=== PATIENT | female | born 1955 | race Caucasian/White ===

== ENCOUNTER → 2017-07-07 10:16 | Outpatient (CLI) | payer MEDICARE, SELFPAY ==
--- NOTE | 2017-07-07 10:41 | XR_ITS ---
XR foot LT min 3V HISTORY: ITS.REASON: LT FOOT PAIN ORDERING PHYSICIAN: Nakul Partida PATIENT AGE: 61 years COMPARISON: None FINDINGS: No fracture or dislocation. No lytic or blastic change. There is normal mineralization.. The joint spaces are well-preserved. No significant degenerative/arthritic changes. No erosive changes evident. There is a small calcaneal spur which is nonspecific IMPRESSION: Negative, no acute finding
[2017-07-07 12:10] LABS: Alanine Aminotransferase 46 U/L (12-78); Albumin Level 3.9 gm/dL (3.4-5.0); Albumin/Globulin Ratio 1.2 (1.1-1.8); Alkaline Phosphatase 170 U/L (46-116); Anion Gap 15.6 mEq/L (5-15); Aspartate Amino Transferase 38 U/L (15-37); Bilirubin,Total 0.4 mg/dL (0.2-1.0); Blood Urea Nitrogen 14 mg/dL (7-18); Calcium 9.2 mg/dL (8.5-10.1); Carbon Dioxide 27 mmol/L (21.0-32.0); Chloride 106 mmol/L (98-107); Cholesterol 190 mg/dL (140-200); Creatinine,Serum 0.68 mg/dL (0.55-1.02); Estimated Glomerular Filt Rate 87 ml/min (>60); GFR (African American) 106 ML/MIN (>60); Globulin 3.3 gm/dl (1.3-3.2); Glucose 177 mg/dL (74-106); HDL Cholesterol 64 mg/dL (29-89); LDL Cholesterol 100 mg/dL (0-130); Potassium 4.6 mmoL/L (3.5-5.1); Sodium 144 mmol/L (136-145); Total Protein,Serum 7.2 gm/dL (6.4-8.2); Triglycerides 129 mg/dL (30-200); VLDL Cholesterol 26 mg/dL (0-40)
[2017-07-08 10:14] LABS: Creatinine, Urine 75.6 mg/dL (Not Estab.); Microalbumin, Urine 5.4 ug/mL (Not Estab.)
== END ==
PROVIDERS: PCP Family Medicine; Visit Provider Internal Medicine Endocrinology, Diabetes & Metabolism
DX: E11.65 Type 2 diabetes mellitus with hyperglycemia (principal); Z79.4 Long term (current) use of insulin; M79.672 Pain in left foot
CPT/HCPCS: 36415; 73630; 80053; 80061; 82043

== ENCOUNTER → 2017-09-14 11:13 | Outpatient (CLI) | payer MEDICARE, SELFPAY ==
[2017-09-14 11:26] LABS: Microscopic, Urine URINE MICROSCOPIC (MICROSCOPIC)
[2017-09-14 11:53] LABS: Appearance,Urine CLEAR (Clear); Bilirubin,Urine Negative (Negative); Blood, Urine Negative (Negative); Color,Urine YELLOW (Yellow); Glucose,Urine (UA) Negative (Negative); Ketones,Urine Negative (Negative); Leukocyte Esterase,Urine TRACE (Negative); Nitrate,Urine Negative (Negative); Protein,Urine Negative (Negative); Urobilinogen,Urine 0.2 EU/dl (0.2)
[2017-09-14 12:43] LABS: Bacteria,Urine Trace /lpf; WBC,Urine Occasional #/hpf (0-3)
== END ==
PROVIDERS: Visit Provider Physician Assistant
DX: R30.0 Dysuria (principal)
CPT/HCPCS: 81001; 87086

== ENCOUNTER → 2018-01-15 08:39 | Outpatient (CLI) | payer MEDICARE, SELFPAY ==
[2018-01-15 09:35] LABS: Alanine Aminotransferase 104 U/L (12-78); Albumin/Globulin Ratio 1.1 (1.1-1.8); Alkaline Phosphatase 183 U/L (46-116); Anion Gap 12.9 mEq/L (5-15); Aspartate Amino Transferase 77 U/L (15-37); Bilirubin,Total 0.6 mg/dL (0.2-1.0); Blood Urea Nitrogen 14 mg/dL (7-18); Carbon Dioxide 27 mmol/L (21.0-32.0); Chloride 104 mmol/L (98-107); Chol/HDL Ratio 4.7 (1-3.5); Cholesterol 253 mg/dL (140-200); Creatinine,Serum 0.77 mg/dL (0.55-1.02); Estimated Glomerular Filt Rate 75 ml/min (>60); GFR (African American) 91 ML/MIN (>60); Globulin 3.7 gm/dl (1.3-3.2); Glucose 239 mg/dL (74-106); HDL Cholesterol 54 mg/dL (29-89); LDL Cholesterol 163 mg/dL (0-130); Potassium 3.9 mmoL/L (3.5-5.1); Sodium 140 mmol/L (136-145); Total Protein,Serum 7.7 gm/dL (6.4-8.2); Triglycerides 179 mg/dL (30-200); VLDL Cholesterol 36 mg/dL (0-40)
[2018-01-15 09:45] LABS: Calcium 9.2 mg/dL (8.5-10.1)
[2018-01-16 09:21] LABS: Creatinine, Urine 80.8 mg/dL (Not Estab.); Microalbumin, Urine 6.1 ug/mL (Not Estab.)
== END ==
PROVIDERS: Visit Provider Nurse Practitioner
DX: E11.65 Type 2 diabetes mellitus with hyperglycemia (principal); E78.5 Hyperlipidemia, unspecified
CPT/HCPCS: 36415; 80053; 80061; 82043; 82570

== ENCOUNTER → 2018-02-12 07:21 | Outpatient (CLI) | payer MEDICARE, SELFPAY ==
[2018-02-12 07:50] LABS: Basophils % 0.4 % (0.1-2.0); Eosinophils # 0.2 K/mm3 (0.0-0.4); Eosinophils % 2.2 % (0.1-12.0); Hematocrit 47.5 % (37.0-47.0); Hemoglobin 15.5 g/dL (12.2-16.2); Lymphocytes # 1.9 K/mm3 (0.7-4.5); Lymphocytes % 24.9 K/mm3 (10-50); Mean Corpuscular HGB Conc 32.6 g/dL (31.8-35.4); Mean Corpuscular Hemoglobin 29.2 pg (27.0-31.2); Mean Corpuscular Volume 89.4 fl (81-99); Monocytes # 0.4 K/mm3 (0.1-1.0); Monocytes % 5.6 % (1.7-9.3); Neutrophils # 5.2 K/mm3 (1.8-7.8); Neutrophils % 66.9 % (37.0-80.0); Platelet Count 161 K/mm3 (142-424); Red Blood Count 5.31 M/mm3 (4.20-5.40); Red Cell Distribution Width 13.6 % (11.5-17.5); White Blood Count 7.7 K/mm3 (4.8-10.8)
[2018-02-12 08:24] LABS: Hemoglobin A1C 8.6 % (0.0-7.0)
[2018-02-12 09:22] LABS: Alanine Aminotransferase 96 U/L (12-78); Albumin Level 3.9 gm/dL (3.4-5.0); Albumin/Globulin Ratio 1.1 (1.1-1.8); Alkaline Phosphatase 169 U/L (46-116); Anion Gap 16.9 mEq/L (5-15); Aspartate Amino Transferase 73 U/L (15-37); Bilirubin,Total 0.6 mg/dL (0.2-1.0); Blood Urea Nitrogen 13 mg/dL (7-18); Calcium 9.1 mg/dL (8.5-10.1); Carbon Dioxide 26 mmol/L (21.0-32.0); Chloride 103 mmol/L (98-107); Chol/HDL Ratio 4.1 (1-3.5); Cholesterol 236 mg/dL (140-200); Creatinine,Serum 0.74 mg/dL (0.55-1.02); Estimated Glomerular Filt Rate 79 ml/min (>60); Ferritin 376 ng/mL (8-388); GFR (African American) 96 ML/MIN (>60); Globulin 3.4 gm/dl (1.3-3.2); Glucose 227 mg/dL (74-106); HDL Cholesterol 57 mg/dL (29-89); Iron 79 ug/dl (28-170); LDL Cholesterol 150 mg/dL (0-130); Phosphorous 3.9 mg/dL (2.4-4.9); Potassium 3.9 mmoL/L (3.5-5.1); Sodium 142 mmol/L (136-145); Thyroid Stimulating Hormone 1.67 uIU/ml (0.358-3.740); Total Protein,Serum 7.3 gm/dL (6.4-8.2); Triglycerides 147 mg/dL (30-200); VLDL Cholesterol 29 mg/dL (0-40)
[2018-02-13 18:41] LABS: Folate >20.0 ng/mL (>3.0); Parathyroid Hormone Intact 34 pg/mL (15-65); Prealbumin 18 mg/dL (10-36); Vitamin D 25 Hydroxy 38.6 ng/mL (30.0-100.0)
[2018-02-17 08:27] LABS: Vitamin E Alpha Tocopherol 13.8 mg/L (9.0-29.0)
[2018-02-17 10:57] LABS: Vitamin B1 143.1 nmol/L (66.5-200.0)
[2018-02-17 10:58] LABS: Vitamin A 29.7 ug/dL (36.4-108.0)
[2018-02-17 10:59] LABS: Methylmalonic Acid 106 nmol/L (0-378)
== END ==
PROVIDERS: Visit Provider Physician Assistant
DX: K21.9 Gastro-esophageal reflux disease without esophagitis (principal); E11.9 Type 2 diabetes mellitus without complications; E66.01 Morbid (severe) obesity due to excess calories; E78.5 Hyperlipidemia, unspecified; E55.9 Vitamin D deficiency, unspecified
CPT/HCPCS: 36415; 80053; 80061; 82131; 82652; 82728; 82746; 83036; 83540; 83735; 83970; 84100; 84134; 84425; 84443; 84446; 84590; 85025

== ENCOUNTER → 2018-02-22 09:39 | Outpatient (CLI) | payer MEDICARE, SELFPAY ==
--- NOTE | 2018-02-22 09:46 | MM_ITS ---
MM Dig screening mamm BI w/CAD ORDERING PHYSICIAN : Shira Pierre MD PATIENT AGE: 62 years GENDER: Female COMPARISON: December 2016. INDICATION: ITS.REASON: SCREENING. No hormones. No new complaints noncontributory family history TECHNIQUE: Standard CC and MLO images were obtained. R2 CAD reviewed. FINDINGS: Low-density breast with diffuse fatty replacement bilaterally. No mass lesion. No suspicious findings. No architectural distortion. No suspicious calcifications. CAD computer review highlights no areas of concern either. Stable appearance when compared to previous lateral mammogram December 2016 . IMPRESSION: Negative, stable bilateral mammogram. Low-density breast diffuse fatty replacement. No areas of concern BI-RADS Category: 1 Negative RECOMMENDED FOLLOW-UP: 1YR 1 YEAR FOLLOW-UP (A letter has been sent to the patient regarding results of the study.)
== END ==
PROVIDERS: Family Provider Family Medicine; PCP Family Medicine; Visit Provider Family Medicine
DX: Z12.31 Encounter for screening mammogram for malignant neoplasm of breast (principal); R00.2 Palpitations
CPT/HCPCS: 77067; 93005

== ENCOUNTER → 2018-03-15 08:36 | Outpatient (POV) | payer MEDICARE, SELFPAY | PROVIDERS: Family Provider Family Medicine; PCP Family Medicine; Visit Provider Physician Assistant | DX: Z00.00 Encounter for general adult medical examination without abnormal findings (principal) ==

== ENCOUNTER → 2018-05-08 10:03 | Outpatient (CLI) | payer MEDICARE, OTHER, SELFPAY ==
--- NOTE | 2018-05-08 10:35 | XR_ITS ---
XR chest 2V HISTORY: ITS.REASON: former smoker ORDERING PHYSICIAN: Alexandra Green PATIENT AGE: 62 years COMPARISON: PA and lateral chest 03/18/2011 FINDINGS: The cardiomediastinal silhouette and pulmonary vascularity are within normal limits. The lungs are clear without infiltrates, suspicious nodules, or pleural effusions. No acute bony abnormalities. There are mild degenerative changes lower thoracic spine. IMPRESSION: Negative chest, no acute finding
== END ==
PROVIDERS: PCP Family Medicine; Visit Provider Physician Assistant
DX: K21.9 Gastro-esophageal reflux disease without esophagitis (principal); E55.9 Vitamin D deficiency, unspecified; E11.9 Type 2 diabetes mellitus without complications; E78.5 Hyperlipidemia, unspecified; E66.01 Morbid (severe) obesity due to excess calories
CPT/HCPCS: 71046

== ENCOUNTER → 2018-08-12 08:59 | Outpatient (CLI) | payer MEDICARE, MEDICAID, SELFPAY ==
[2018-08-12 10:28] LABS: Basophils % 0.5 % (0.1-2.0); Eosinophils # 0.1 K/mm3 (0.0-0.4); Eosinophils % 1.7 % (0.1-12.0); Lymphocytes # 1.8 K/mm3 (0.7-4.5); Lymphocytes % 27.8 % (10-50); Mean Corpuscular HGB Conc 32.7 g/dL (31.8-35.4); Mean Corpuscular Hemoglobin 30.3 pg (27.0-31.2); Mean Corpuscular Volume 92.6 fl (81-99); Mean Platelet Volume 7.8 fl (7.4-10.4); Monocytes # 0.4 K/mm3 (0.1-1.0); Monocytes % 6.2 % (1.7-9.3); Neutrophils # 4.2 K/mm3 (1.8-7.8); Neutrophils % 63.8 % (37.0-80.0); Platelet Count 171 K/mm3 (142-424); Red Blood Count 5.29 M/mm3 (4.20-5.40); Red Cell Distribution Width 13.6 % (11.5-17.5); White Blood Count 6.6 K/mm3 (4.8-10.8)
[2018-08-12 11:26] LABS: Hemoglobin A1C 6.3 % (0.0-7.0)
[2018-08-12 11:39] LABS: Alanine Aminotransferase 40 U/L (12-78); Albumin/Globulin Ratio 1.2 (1.1-1.8); Alkaline Phosphatase 148 U/L (46-116); Aspartate Amino Transferase 25 U/L (15-37); Bilirubin,Total 0.7 mg/dL (0.2-1.0); Blood Urea Nitrogen 9 mg/dL (7-18); Calcium 9.4 mg/dL (8.5-10.1); Carbon Dioxide 28 mmol/L (21.0-32.0); Chloride 104 mmol/L (98-107); Chol/HDL Ratio 5.1 (1-3.5); Cholesterol 253 mg/dL (140-200); Creatinine,Serum 0.68 mg/dL (0.55-1.02); Estimated Glomerular Filt Rate 87 ml/min (>60); Ferritin 230 ng/mL (8-388); GFR (African American) 105 ML/MIN (>60); Globulin 3.3 gm/dl (1.3-3.2); Glucose 170 mg/dL (74-106); HDL Cholesterol 50 mg/dL (29-89); Iron 132 ug/dl (28-170); LDL Cholesterol 170 mg/dL (0-130); Magnesium 2.1 mg/dL (1.4-2.2); Phosphorous 3.9 mg/dL (2.4-4.9); Sodium 144 mmol/L (136-145); Thyroid Stimulating Hormone 1.73 uIU/ml (0.358-3.740); Total Protein,Serum 7.3 gm/dL (6.4-8.2); Triglycerides 167 mg/dL (30-200); VLDL Cholesterol 33 mg/dL (0-40)
[2018-08-13 12:28] LABS: Folate >20.0 ng/mL (>3.0)
[2018-08-13 12:29] LABS: Prealbumin 19 mg/dL (10-36); Vitamin D 25 Hydroxy 41.8 ng/mL (30.0-100.0)
[2018-08-13 17:12] LABS: Parathyroid Hormone Intact 33 pg/mL (15-65)
[2018-08-14 18:08] LABS: Methylmalonic Acid 86 nmol/L (0-378)
[2018-08-17 09:54] LABS: Vitamin B1 103.8 nmol/L (66.5-200.0)
[2018-08-17 09:56] LABS: Vitamin A 48.8 ug/dL (22.0-69.5); Vitamin E Alpha Tocopherol 14.2 mg/L (9.0-29.0); Vitamin E Gamma Tocopherol 2.9 mg/L (0.5-4.9)
== END ==
PROVIDERS: Visit Provider Physician Assistant
DX: E78.5 Hyperlipidemia, unspecified (principal); E11.9 Type 2 diabetes mellitus without complications; R63.4 Abnormal weight loss; Z98.84 Bariatric surgery status
CPT/HCPCS: 36415; 80053; 80061; 82131; 82652; 82728; 82746; 83036; 83540; 83735; 83970; 84100; 84134; 84425; 84443; 84446; 84590; 85025

== ENCOUNTER → 2018-11-30 09:24 | Outpatient (CLI) | payer MEDICARE, SELFPAY ==
[2018-11-30 11:02] LABS: Basophils % 0.4 % (0.1-2.0); Eosinophils # 0.2 K/mm3 (0.0-0.4); Eosinophils % 2.1 % (0.1-12.0); Hematocrit 42.4 % (37.0-47.0); Hemoglobin 14.6 g/dL (12.2-16.2); Lymphocytes # 2.4 K/mm3 (0.7-4.5); Lymphocytes % 29.8 % (10-50); Mean Corpuscular HGB Conc 34.5 g/dL (31.8-35.4); Mean Corpuscular Hemoglobin 30.5 pg (27.0-31.2); Mean Corpuscular Volume 88.5 fl (81-99); Mean Platelet Volume 8.5 fl (7.4-10.4); Monocytes # 0.4 K/mm3 (0.1-1.0); Monocytes % 4.6 % (1.7-9.3); Platelet Count 163 K/mm3 (142-424); Red Blood Count 4.79 M/mm3 (4.20-5.40); Red Cell Distribution Width 13.2 % (11.5-17.5)
[2018-11-30 12:51] LABS: Alanine Aminotransferase 31 U/L (12-78); Albumin Level 3.7 gm/dL (3.4-5.0); Albumin/Globulin Ratio 1.2 (1.1-1.8); Alkaline Phosphatase 174 U/L (46-116); Anion Gap 15.8 mEq/L (5-15); Aspartate Amino Transferase 26 U/L (15-37); Bilirubin,Total 0.7 mg/dL (0.2-1.0); Blood Urea Nitrogen 9 mg/dL (7-18); Calcium 8.8 mg/dL (8.5-10.1); Carbon Dioxide 27 mmol/L (21.0-32.0); Chloride 105 mmol/L (98-107); Chol/HDL Ratio 4.7 (1-3.5); Cholesterol 235 mg/dL (140-200); Creatinine,Serum 0.52 mg/dL (0.55-1.02); Estimated Glomerular Filt Rate 118 ml/min (>60); Ferritin 282 ng/mL (8-388); GFR (African American) 143 ML/MIN (>60); Globulin 3.1 gm/dl (1.3-3.2); Glucose 128 mg/dL (74-106); HDL Cholesterol 50 mg/dL (29-89); Iron 144 ug/dl (28-170); LDL Cholesterol 146 mg/dL (0-130); Lipase 176 u/L (73-393); Magnesium 1.9 mg/dL (1.4-2.2); Phosphorous 3.7 mg/dL (2.4-4.9); Potassium 3.8 mmoL/L (3.5-5.1); Sodium 144 mmol/L (136-145); Thyroid Stimulating Hormone 1.72 uIU/ml (0.358-3.740); Total Protein,Serum 6.8 gm/dL (6.4-8.2); Triglycerides 194 mg/dL (30-200); VLDL Cholesterol 39 mg/dL (0-40)
[2018-11-30 15:14] LABS: Hemoglobin A1C 6.8 % (0.0-7.0)
[2018-12-03 12:13] LABS: Methylmalonic Acid 79 nmol/L (0-378)
[2018-12-03 20:38] LABS: Folate >20.0 ng/mL (>3.0); Prealbumin 19 mg/dL (10-36)
[2018-12-03 20:39] LABS: Parathyroid Hormone Intact 35 pg/mL (15-65)
[2018-12-03 20:40] LABS: Vitamin D 25 Hydroxy 38.6 ng/mL (30.0-100.0)
[2018-12-03 20:46] LABS: Vitamin A 33.9 ug/dL (22.0-69.5); Vitamin B1 135.8 nmol/L (66.5-200.0)
[2018-12-10 17:44] LABS: Vitamin E Alpha Tocopherol 23.6 mg/L (9.0-29.0); Vitamin E Gamma Tocopherol 1.1 mg/L (0.5-4.9)
== END ==
PROVIDERS: PCP Internal Medicine Adolescent Medicine; Visit Provider Surgery
DX: E11.9 Type 2 diabetes mellitus without complications (principal); E55.9 Vitamin D deficiency, unspecified; E78.5 Hyperlipidemia, unspecified; Z98.84 Bariatric surgery status
CPT/HCPCS: 36415; 80053; 80061; 82131; 82652; 82728; 82746; 83036; 83540; 83690; 83735; 83970; 84100; 84134; 84425; 84443; 84446; 84590; 85025

== ENCOUNTER → 2019-03-03 08:12 | Outpatient (CLI) | payer MEDICARE, SELFPAY ==
[2019-03-03 09:02] LABS: Basophils % 0.4 % (0.1-2.0); Eosinophils # 0.2 K/mm3 (0.0-0.4); Eosinophils % 2.1 % (0.1-12.0); Hematocrit 41.9 % (37.0-47.0); Hemoglobin 14.2 g/dL (12.2-16.2); Lymphocytes % 29.4 % (10-50); Mean Corpuscular HGB Conc 33.8 g/dL (31.8-35.4); Mean Corpuscular Hemoglobin 31.2 pg (27.0-31.2); Mean Corpuscular Volume 92.3 fl (81-99); Mean Platelet Volume 8.1 fl (7.4-10.4); Monocytes # 0.4 K/mm3 (0.1-1.0); Monocytes % 5.4 % (1.7-9.3); Neutrophils # 4.3 K/mm3 (1.8-7.8); Neutrophils % 62.7 % (37.0-80.0); Platelet Count 183 K/mm3 (142-424); Red Blood Count 4.54 M/mm3 (4.20-5.40); Red Cell Distribution Width 13.1 % (11.5-17.5); White Blood Count 6.9 K/mm3 (4.8-10.8)
[2019-03-03 10:08] LABS: Alanine Aminotransferase 25 U/L (12-78); Albumin Level 4.1 gm/dL (3.4-5.0); Albumin/Globulin Ratio 1.3 (1.1-1.8); Alkaline Phosphatase 151 U/L (46-116); Aspartate Amino Transferase 23 U/L (15-37); Bilirubin,Total 0.7 mg/dL (0.2-1.0); Blood Urea Nitrogen 14 mg/dL (7-18); Calcium 9.3 mg/dL (8.5-10.1); Carbon Dioxide 27 mmol/L (21.0-32.0); Chloride 104 mmol/L (98-107); Chol/HDL Ratio 3.9 (1-3.5); Cholesterol 235 mg/dL (140-200); Creatinine,Serum 0.64 mg/dL (0.55-1.02); Estimated Glomerular Filt Rate 93 ml/min (>60); Ferritin 383 ng/mL (8-388); GFR (African American) 113 ML/MIN (>60); Globulin 3.1 gm/dl (1.3-3.2); Glucose 150 mg/dL (74-106); HDL Cholesterol 60 mg/dL (29-89); Iron 135 ug/dl (28-170); LDL Cholesterol 143 mg/dL (0-130); Magnesium 1.8 mg/dL (1.4-2.2); Phosphorous 3.8 mg/dL (2.4-4.9); Sodium 143 mmol/L (136-145); Thyroid Stimulating Hormone 1.52 uIU/ml (0.358-3.740); Total Protein,Serum 7.2 gm/dL (6.4-8.2); Triglycerides 160 mg/dL (30-200); VLDL Cholesterol 32 mg/dL (0-40)
[2019-03-03 10:45] LABS: Hemoglobin A1C 6.4 % (0.0-7.0)
[2019-03-04 11:47] LABS: Folate >20.0 ng/mL (>3.0); Vitamin D 25 Hydroxy 34.8 ng/mL (30.0-100.0)
[2019-03-04 13:09] LABS: Parathyroid Hormone Intact 42 pg/mL (15-65)
[2019-03-04 17:34] LABS: Prealbumin 21 mg/dL (10-36)
[2019-03-07 09:54] LABS: Vitamin A 46.4 ug/dL (22.0-69.5); Vitamin E Alpha Tocopherol 18.2 mg/L (9.0-29.0); Vitamin E Gamma Tocopherol 1.9 mg/L (0.5-4.9)
[2019-03-07 09:55] LABS: Vitamin B1 169.9 nmol/L (66.5-200.0)
[2019-03-07 14:15] LABS: Methylmalonic Acid 129 nmol/L (0-378)
== END ==
PROVIDERS: Visit Provider Physician Assistant
DX: E11.9 Type 2 diabetes mellitus without complications (principal); E78.5 Hyperlipidemia, unspecified; E55.9 Vitamin D deficiency, unspecified; R63.4 Abnormal weight loss; Z98.84 Bariatric surgery status
CPT/HCPCS: 36415; 80053; 80061; 82131; 82652; 82728; 82746; 83036; 83540; 83735; 83970; 84100; 84134; 84425; 84443; 84446; 84590; 85025

== ENCOUNTER → 2019-06-21 09:53 | Outpatient (CLI) | payer MEDICARE, SELFPAY ==
[2019-06-21 12:51] LABS: Lipase 187 u/L (73-393)
== END ==
PROVIDERS: Visit Provider Internal Medicine Adolescent Medicine
DX: R10.84 Generalized abdominal pain (principal)
CPT/HCPCS: 36415; 83690

== ENCOUNTER → 2019-08-02 10:19 | Outpatient (CLI) | payer MEDICARE, SELFPAY ==
[2019-08-02 10:54] LABS: Hemoglobin A1C 7.4 % (0.0-7.0)
== END ==
PROVIDERS: Visit Provider Internal Medicine Adolescent Medicine
DX: E11.40 Type 2 diabetes mellitus with diabetic neuropathy, unspecified (principal)
CPT/HCPCS: 36415; 83036

== ENCOUNTER → 2019-08-16 08:13 | Outpatient (POV) | payer MEDICARE, SELFPAY | PROVIDERS: PCP Internal Medicine Adolescent Medicine; Visit Provider Dermatology | DX: Z00.00 Encounter for general adult medical examination without abnormal findings (principal) ==

== ENCOUNTER → 2019-08-26 08:35 | Outpatient (CLI) | payer MEDICARE, SELFPAY ==
--- NOTE | 2019-08-26 08:41 | MM_ITS ---
PROCEDURE: MM DIG SCREENING MAMM BI W/CAD CLINICAL INDICATION: SCREENING There is no personal or family history of breast cancer COMPARISON: [facility] DIG MAMM-SCREEN BHARGAV W/CAD from 01/08/2017 [facility] MM Dig screening mamm BI w/CAD from 02/22/2018 TECHNIQUE: Standard CC and MLO images and 3D Tomosynthesis was obtained. R2 CAD reviewed. FINDINGS: The breasts are composed almost entirely of fat with very minimal scattered fibroglandular densities noted. Kev images were reviewed. There is no suspicious lesion in either breast and no suspicious microcalcifications. IMPRESSION: Fatty type breast parenchyma with no suspicious lesions seen BI-RAD Category: 1 Negative FOLLOW-UP: 1YR 1 Year Follow-up (A letter has been sent to the patient regarding results of the study.) Dictated by: Dr. Kirill Rod MD 08/30/2019 15:[address] Kirill Rod MD in [place] 08/30/2019 15:47
== END ==
PROVIDERS: PCP Internal Medicine Adolescent Medicine; Visit Provider Internal Medicine Adolescent Medicine
DX: Z12.31 Encounter for screening mammogram for malignant neoplasm of breast (principal)
CPT/HCPCS: 77063; 77067

== ENCOUNTER → 2020-01-03 09:06 | Outpatient (POV) | payer MEDICARE, SELFPAY | PROVIDERS: Visit Provider Dermatology | DX: Z00.00 Encounter for general adult medical examination without abnormal findings (principal) ==

== ENCOUNTER → 2020-03-14 08:03 | Outpatient (CLI) | payer MEDICARE, SELFPAY ==
[2020-03-14 09:06] LABS: Chloride 99 mmol/L (98-107); Sodium 137 mmol/L (136-145)
[2020-03-14 09:07] LABS: Potassium 4.2 mmoL/L (3.5-5.1)
[2020-03-14 09:09] LABS: Alanine Aminotransferase 24 U/L (12-78); Alkaline Phosphatase 143 U/L (38-126); Anion Gap 14.2 mEq/L (5-15); Aspartate Amino Transferase 35 U/L (14-36); Bilirubin,Total 0.9 mg/dl (0.2-1.3); Blood Urea Nitrogen 23 mg/dl (7-17); Carbon Dioxide 28 mmol/L (22.0-30.0); Estimated Glomerular Filt Rate 84 ml/min (>60); GFR (African American) 101 ML/MIN (>60)
[2020-03-14 09:10] LABS: Albumin Level 4.3 g/dl (3.5-5.0); Albumin/Globulin Ratio 1.6 (1.1-1.8); Calcium 9.7 mg/dl (8.4-10.2); Globulin 2.7 g/dL (1.3-3.2); Glucose 320 mg/dl (74-100)
[2020-03-14 09:13] LABS: Hemoglobin A1C 10.6 % (4.0-6.0)
== END ==
PROVIDERS: Visit Provider Internal Medicine Adolescent Medicine
DX: E11.40 Type 2 diabetes mellitus with diabetic neuropathy, unspecified (principal)
CPT/HCPCS: 36415; 80053; 83036

== ENCOUNTER → 2020-06-04 08:55 | Outpatient (CLI) | payer MEDICARE, SELFPAY ==
[2020-06-04 09:34] LABS: Chloride 102 mmol/L (98-107); Potassium 4.1 mmoL/L (3.5-5.1); Sodium 138 mmol/L (136-145)
[2020-06-04 09:37] LABS: Alanine Aminotransferase 23 U/L (12-78); Albumin Level 4.7 g/dl (3.5-5.0); Albumin/Globulin Ratio 1.4 (1.1-1.8); Alkaline Phosphatase 151 U/L (38-126); Anion Gap 14.1 mEq/L (5-15); Aspartate Amino Transferase 39 U/L (14-36); Bilirubin,Total 1.1 mg/dl (0.2-1.3); Blood Urea Nitrogen 18 mg/dl (7-17); Calcium 9.8 mg/dl (8.4-10.2); Carbon Dioxide 26 mmol/L (22.0-30.0); Estimated Glomerular Filt Rate 84 ml/min (>60); GFR (African American) 101 ML/MIN (>60); Globulin 3.3 g/dL (1.3-3.2); Glucose 257 mg/dl (74-100)
[2020-06-04 11:49] LABS: Hemoglobin A1C 9.2 % (4.0-6.0)
== END ==
PROVIDERS: Visit Provider Internal Medicine Adolescent Medicine
DX: E11.40 Type 2 diabetes mellitus with diabetic neuropathy, unspecified (principal); Z79.4 Long term (current) use of insulin
CPT/HCPCS: 36415; 80053; 83036

== ENCOUNTER → 2020-10-25 08:29 | Outpatient (CLI) | payer MEDICARE, SELFPAY ==
[2020-10-25 08:39] LABS: Adenovirus F 40/41, stool Not Detected (NotDetected); Astrovirus Not Detected (NotDetected); Campylobacter Not Detected (NotDetected); Clostridium Difficile A/B, PCR Not Detected (NotDetected); Cryptosporidium Not Detected (NotDetected); Cyclospora Cayetanesis Not Detected (NotDetected); Entamoeba histolytica Not Detected (NotDetected); Enteroaggregative E coli Not Detected (NotDetected); Enteropathogenic E coli Not Detected (NotDetected); Enterotoxigenic E coli Not Detected (NotDetected); Giardia lamblia Not Detected (NotDetected); Norovirus Not Detected (NotDetected); Plesimonas Shigalloides, PCR Not Detected (NotDetected); Rotavirus A Not Detected (NotDetected); Salmonella, PCR Not Detected (NotDetected); Sapovirus Not Detected (NotDetected); Shiga-like toxin E coli Not Detected (NotDetected); Shigella Enterovasive E coli Not Detected (NotDetected); Vibrio Cholerae Not Detected (NotDetected); Vibrio, PCR Not Detected (NotDetected); Yersinia Entercolitica, PCR Not Detected (NotDetected)
[2020-10-29 23:42] LABS: Calprotectin, Fecal 71 ug/g (0-120)
== END ==
PROVIDERS: Visit Provider Internal Medicine Gastroenterology
DX: R10.30 Lower abdominal pain, unspecified (principal); R14.0 Abdominal distension (gaseous); K21.9 Gastro-esophageal reflux disease without esophagitis; Z80.9 Family history of malignant neoplasm, unspecified; Z86.010 Personal history of colon polyps; R19.7 Diarrhea, unspecified
CPT/HCPCS: 83993; 87506

== ENCOUNTER → 2020-10-26 07:43 | Outpatient (CLI) | payer MEDICARE, SELFPAY ==
[2020-10-26 09:59] LABS: Coronavirus 19 IgG Antibody Positive (Negative); Coronavirus 19 IgM Antibody Negative (Negative)
[2020-11-05 20:38] LABS: Bile Acids 2.6
== END ==
PROVIDERS: Visit Provider Internal Medicine Gastroenterology
DX: Z01.812 Encounter for preprocedural laboratory examination (principal); Z20.822 Contact with and (suspected) exposure to COVID-19; Z12.11 Encounter for screening for malignant neoplasm of colon; R10.30 Lower abdominal pain, unspecified; K52.9 Noninfective gastroenteritis and colitis, unspecified; K21.9 Gastro-esophageal reflux disease without esophagitis
CPT/HCPCS: 36415; 82239; 86328

== ENCOUNTER 2020-10-29 11:18 | Day surgery (SDC) | payer MEDICARE, SELFPAY ==
[2020-10-26 07:39] VITALS: BMI 35.2
[2020-10-29] VITALS (7 sets, daily range): BP systolic 90–123; BP diastolic 53–76; PULSE 60–94; RESP 16–18; TEMP 36.4; O2SAT 94–99
[2020-10-29 12:05] LABS: POC Glucose,Bedside 221 (70-110)
--- NOTE | 2020-10-29 12:56 | HMH.PROC ---
[facility] Procedure Note Procedure Note:: Colonoscopy Procedure Report: Colonoscopy with cold biopsies, cold snare polypectomy and Endo Clip placement Endoscopist: José Miguel Randall II, MD Referring physician: Manjit Peters MD Date of Procedure: October 29, 2020 Equipment: Olympus 190 variable stiffness pediatric colonoscope Sedation: MAC sedation Indication: Mrs. Crump is a 65-year-old female with chronic diarrhea who is here for diagnostic colonoscopy. She has 6-8 watery bowel movements daily in the morning. She does have some urgency with incomplete defecation. She does report some bouts of incontinence. She does get lower abdominal crampy discomfort especially postprandially. Her half brother had colon cancer at the age of 53. I did a colonoscopy on the patient 15 years ago. She has had no subsequent colonoscopy. She did have gastric sleeve surgery by Dr. Roscoe Kirk. She has had prior cholecystectomy 18 years ago. She had been treated for H. pylori. She reports no weight loss. She does take Celebrex. She was diagnosed with IBS years ago. She reports no rectal bleeding or weight loss. The patient's PCR panel was negative. 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 Procedure: Prior to the procedure, a history and physical exam was performed, and patient's medications and allergies were reviewed. The risks, benefits and alternatives of the sedation and procedure were discussed with the patient. All questions were answered and informed consent was obtained. The patient was brought to the procedure room. Patient identification and proposed procedure were verified by the physician and the nurse. The patient was placed in a left lateral decubitus position and the scope was passed under direct vision. Throughout the procedure, the patient's blood pressure, pulse, and oxygen saturations were monitored continuously. The colonoscopy was accomplished without difficulty. The patient tolerated the procedure well. Findings: On digital rectal examination there was normal rectal tone. There were no external hemorrhoids. The colonoscope was introduced through the anal canal to the rectum and advanced to the cecum. The ileocecal valve and appendiceal orifice were identified. The scope was advanced a short distance into the ileum which appeared grossly normal. The scope was then withdrawn into the colon. The cecum, ascending and transverse colon and mucosa were grossly normal. Cold biopsies were taken randomly from the right colon to rule out microscopic colitis. There were 2 colon polyps (descending x1 (4 mm) and sigmoid x1 (9 mm)) which were both removed via cold snare polypectomy. There was some heme at the site of the latter polyp and a single Endo Clip was placed to provide full hemostasis. There were scattered diverticuli throughout the descending and sigmoid colon (LEFT colon). The rectum itself was normal. Upon retroflexion within the rectum there were grade 1-2 internal hemorrhoids. The preparation was excellent throughout with Lowell Preparation Score of 9. The cecal time was 14 minutes. Impression: 1. Colonic polyps x2 2. Left-sided diverticulosis 3. Grade 1-2 internal hemorrhoids Plan: I will follow-up the biopsies to rule out microscopic colitis. If the biopsies are normal, I would encourage bulk fiber (FiberCon 2 tablets p.o. every morning) and treatment for cold rate diarrhea (Colestid 2 g p.o. nightly). If the biopsies do show evidence of lymphocytic or collagenous colitis, I would recommend budesonide. I will follow up the polyp histology. Based upon the size of polyps and family history, I would recommend repeat surveillance colonoscopy again in 5 years. I do feel that some of her gas, cramps and bloating are functional (spastic diverticular disease/IBS) and from sucrase deficiency. I would like for her to see the dietitian and begin Sucraid.
--- NOTE | 2020-10-29 17:39 | HMH.ANESCL ---
[facility] Anesthesia Checklist - Patient Identification Patient Identification: Arm Band - Structural Data Admitted From: Home Planned Operative Procedure/s: Colonoscopy Consent for Planned Operative Procedure(s) Verified: Yes Verified Documents: Surgical Consent - NPO Status Verified Time NPO: 00:00 - Airway Assessment C-Spine Mobility Assessed: Yes TMJ Mobility Assessed: Yes Dentition: Good Dentition - Neurological Assessment Level of Consciousness: Awake, Alert - Anesthesia Plan Anesthesia Risk discussed: Yes Anesthesia Plan: Verified ASA Class: III Anesthesia Type: MAC [facility] History Medical History: Reports:: Diabetes Mellitus Type 2 Denies:: Cancer, Diabetes Mellitus Type 1, MRSA, Seizures *Have you ever received a pneumonia vaccine?: Yes *Have you received a flu vaccine this season?: Yes Anesthesia experience/problems:: None Other Surgeries: Yes: Appendectomy, Cholecystectomy, Colonoscopy, Tubal Ligation Amputation: No Fractures: Yes - *Social History Last grade of school completed: High school graduate Smoking Status: Former smoker Alcohol Intake: never Substance Use Type: denies use *Occupational Status:: employed *Travel in the last 8 weeks: None Family Hx:: Cancer, Diabetes, Hyperlipidemia, Hypertension
== END 2020-10-29 14:00 | disposition home or self-care (01) ==
LOC: OUTP 11:20
PROVIDERS: PCP Internal Medicine Adolescent Medicine; Visit Provider Internal Medicine Gastroenterology
PROC: 0DJD8ZZ Inspection of Lower Intestinal Tract, Via Natural or Artificial Opening Endoscopic (ICD-10-PCS; CPT 45378; principal; 2020-10-29 12:30)
DX: K63.5 Polyp of colon (principal); K57.30 Diverticulosis of large intestine without perforation or abscess without bleeding; K64.0 First degree hemorrhoids; I10 Essential (primary) hypertension; E78.5 Hyperlipidemia, unspecified; E11.9 Type 2 diabetes mellitus without complications; K21.9 Gastro-esophageal reflux disease without esophagitis; Z82.3 Family history of stroke; Z83.3 Family history of diabetes mellitus; Z82.49 Family history of ischemic heart disease and other diseases of the circulatory system; Z84.89 Family history of other specified conditions; Z80.0 Family history of malignant neoplasm of digestive organs
CPT/HCPCS: 45385; 82962; 88305

== ENCOUNTER → 2020-12-08 13:25 | Outpatient (CLI) | payer MEDICARE, SELFPAY | PROVIDERS: Visit Provider Nurse Practitioner Family | DX: N39.0 Urinary tract infection, site not specified (principal); B96.4 Proteus (mirabilis) (morganii) as the cause of diseases classified elsewhere | CPT/HCPCS: 87086; 87088; 87186 ==

== ENCOUNTER → 2021-02-22 08:34 | Outpatient (CLI) | payer MEDICARE, SELFPAY ==
[2021-02-22 09:25] LABS: Alanine Aminotransferase 23 U/L (12-78); Albumin Level 4.3 g/dl (3.5-5.0); Albumin/Globulin Ratio 1.5 (1.1-1.8); Alkaline Phosphatase 111 U/L (38-126); Anion Gap 15.8 mEq/L (5-15); Aspartate Amino Transferase 32 U/L (14-36); Bilirubin,Total 0.8 mg/dl (0.2-1.3); Blood Urea Nitrogen 12 mg/dl (7-17); Calcium 9.3 mg/dl (8.4-10.2); Carbon Dioxide 27 mmol/L (22.0-30.0); Chloride 101 mmol/L (98-107); Chol/HDL Ratio 4.2 (1-3.5); Cholesterol 250 mg/dl (140-200); Estimated Glomerular Filt Rate 100 ml/min (>60); GFR (African American) 121 ML/MIN (>60); Globulin 2.8 g/dL (1.3-3.2); Glucose 205 mg/dl (74-100); HDL Cholesterol 59 mg/dl (40-60); Potassium 3.8 mmoL/L (3.5-5.1); Sodium 140 mmol/L (136-145); Total Protein,Serum 7.1 g/dl (6.3-8.2); Triglycerides 176 mg/dl (30-150); VLDL Cholesterol 35 mg/dL (0-40)
[2021-02-22 09:32] LABS: Creatinine,Urine Random 240 mg/dL (Not Estab.)
[2021-02-22 09:35] LABS: Microalbumin/Creatinine Ratio 11.8
[2021-02-22 09:36] LABS: Direct LDL Cholesterol 160.23 mg/dL (100-129)
[2021-02-22 10:02] LABS: Hemoglobin A1C 8.6 % (4.0-6.0)
== END ==
PROVIDERS: Visit Provider Nurse Practitioner Family
DX: E11.40 Type 2 diabetes mellitus with diabetic neuropathy, unspecified (principal); I10 Essential (primary) hypertension; E78.01 Familial hypercholesterolemia; Z79.4 Long term (current) use of insulin
CPT/HCPCS: 36415; 80053; 80061; 82043; 82570; 83036

== ENCOUNTER 2021-06-13 09:01 | Emergency (ER) | payer MEDICARE, SELFPAY ==
[2021-06-13 09:29] VITALS: BP 107/89; PULSE 96; RESP 18; TEMP 37.3; O2SAT 98; BMI 32.8
--- NOTE | 2021-06-13 09:38 | HMH.EDUTC ---
[facility] [place] Disposition Clinical Impression: Strep throat Disposition: Home, Self-Care Condition on Discharge: Good Instructions: DI for Strep Throat, Strep Throat, Amoxicillin Additional Instructions: *Monitor Temp, Over the counter Motrin or Tylenol as directed/as needed Tylenol every 4 hours and Motrin every 6 hours (as long as your family doctor has told you that you can take it) for fever or pain. and straight to ER if unable to lower temp less than 101.0 after medication given *Warm salt water gargles may help to soothe the throat *Throat Lozenges *Warm fluids like tea with honey may help to soothe the throat *Sleep elevated *Humidifier/Vaporizer *If you did not take Penicillin shot or was unable to, start taking antibiotic immediately and make sure that you take it for the FULL length of time although you should start to feel better in 24-48 hours *change toothbrush and toothpaste 24-48 hours after starting to take antibiotics so you do not reinfect yourself Monitor Temp. Tylenol and/or Ibuprofen as needed. ER if fever is no less than 101 despite alternating Tylenol and Ibuprofen * Encourage fluids, water, Gatorade, powerade, pedialyte if /toddler/or child *Cold fluids, popsicles and ice cream may feel good on his throat Follow up IMMEDIATELY for new or worsening symptoms or no Noticeable improvement over the next 48-72 hours. 911 for difficulty breathing or swallowing Prescriptions: Amoxicillin [Amoxicillin 500mg Cap] 500 mg PO TID #30 cap Transmission Status: Pending to [id number] Referrals: Manjit Peters MD [Primary Care Provider] - As needed Forms: Work/School Release Time of Disposition: 09:44 Medical Decision Making - Cisco Inquiry Pt receiving controlled substance: No Cisco was queried for this patient: No Vital Signs: 06/13/21 09:29 Temperature 99.1 F Temperature Source Oral Pulse Rate [Right Radial] 96 H Respiratory Rate 18 Blood Pressure [Right Arm] 107/89 L Blood Pressure Mean [Right Arm] 95 Blood Pressure Source [Right Arm] Automatic Cuff Blood Pressure Position [Right Arm] Sitting 02 Sat by Pulse Oximetry 98 Oxygen Delivery Method Room Air - Lab Data Lab results reviewed: Yes: I reviewed the patient's lab results. Medical Decision Narrative: Patient states that she has taken amoxicillin in the past without complications or reactions [facility] [place] HPI - General Stated complaint: diarrhea, sore throat, headache Time Seen by Provider: 06/13/21 09:38 Mode of Arrival: Ambulatory Source of Information: Patient Limitations: No Limitations Description of Symptoms (Recalled from Triage Doc. by RN): Pt stated severe diarhea, tired, sore throat, HELTON, ears hurt, and haven't eaten or drank in 2 days. HEENT Symptoms (Recalled from RN notes): No Resp Symptoms (Recalled from RN notes): No Skin Symptoms (Recalled from RN notes): No MS Symptoms (Recalled from RN notes): No Functional Status (Recalled from RN notes): n/a - History of Present Illness Provider Complaint: Patient states that she had bad diarrhea yesterday States that diarrhea is better today States that she has been having sore throat pain in both ears hurts when she swallows or tries to eat States that today she was still feeling bad so she came in to get checked out - Related Data Home Medications Medication Instructions Recorded Confirmed omeprazole 20 mg capsule,delayed 20 mg PO BID cap 04/22/18 10/26/20 release insulin glargine 100 unit/mL (3 30 unit SQ HS ml 04/16/20 10/26/20 mL) subcutaneous pen Celecoxib [CeleBREX 100mg Capsule] 100 mg PO DAILY 10/26/20 10/26/20 Losartan/Hydrochlorothiazide 1 each PO DAILY 10/26/20 10/26/20 [Losartan-Hctz 50-12.5 mg Tab] Previous Rx's Medication Instructions Recorded Amoxicillin [Amoxicillin 500mg 500 mg PO TID #30 cap 06/13/21 Cap] Allergies Allergy/AdvReac Type Severity Reaction Status Date / Time metformin Allergy Severe S-ANAPHYLAX Ve
[2021-06-13 09:47] LABS: UTC Influenza A Antigen Negative (Negative); UTC Influenza B Antigen Negative (Negative); UTC Strep Screen (Rapid) Positive (Negative)
[2021-06-13 09:54] VITALS: BP 145/98; PULSE 93; RESP 18; TEMP 37.3; O2SAT 95
== END 2021-06-13 09:54 | disposition home or self-care (01) ==
PROVIDERS: Emergency Provider Nurse Practitioner; PCP Internal Medicine Adolescent Medicine
DX: J02.0 Streptococcal pharyngitis (principal)
CPT/HCPCS: G0463; 87804; 87880; 99203

== ENCOUNTER → 2021-12-31 08:44 | Outpatient (POV) | payer MEDICARE, SELFPAY | PROVIDERS: Visit Provider Dermatology | DX: Z00.00 Encounter for general adult medical examination without abnormal findings (principal) ==

== ENCOUNTER 2022-04-21 14:57 | Emergency (ER) | payer MEDICARE, SELFPAY ==
[2022-04-21 14:57] VITALS: BP 156/92; PULSE 104; RESP 19; TEMP 36.8; O2SAT 100; BMI 25.2
[2022-04-21 16:32] LABS: UTC Influenza A Antigen Negative (Negative); UTC Influenza B Antigen Negative (Negative)
--- NOTE | 2022-04-21 16:41 | EXP.UTC ---
Discharge Plan Disposition Patient Disposition: Home, Self-Care Condition: Good Prescriptions Prescriptions: No Action omeprazole 20 mg capsule,delayed release(DR/EC) 20 mg PO BID Magalyaglnicole Estrada U-100 Insulin 100 unit/mL (3 mL) insulin pen 34 unit SQ HS losartan-hydrochlorothiazide 1 EACH tablet 1 each PO DAILY celecoxib 100 MG capsule 100 mg PO DAILY amoxicillin 500 MG capsule 500 mg PO TID Qty: 30 0RF Referrals Follow up/Referrals: Enedelia Hart APRN [Primary Care Provider] - See instructions Activity Restrictions/Add. Instructions Additional Instructions/Restrictions: *Monitor Temp, Over the counter Motrin or Tylenol as directed/as needed Tylenol every 4 hours and Motrin every 6 hours (as long as your family doctor has told you that you can take it) for fever or pain. and straight to ER if unable to lower temp less than 101.0 after medication given *Warm salt water gargles may help to soothe the throat *Throat Lozenges? *Warm fluids like tea with honey may help to soothe the throat? *Sleep elevated *Humidifier/Vaporizer Over the counter cold and sinus medication may help with symptoms if you can take it Follow up IMMEDIATELY for new or worsening symptoms or no Noticeable improvement over the next 48-72 hours. 911 for difficulty breathing or swallowing You were tested for today for COVID19 your test result should be back in the next 24-48 hours, you may check your results on the [facility] Clinical Impressions Clinical Impression: Viral upper respiratory tract infection Instructions Patient Instructions: Sore Throat, DI for Nasal Congestion, DI for Viral Upper Respiratory Infection -- Adult Discharge ED Provider: Preeti Parks [facility] HPI General Stated complaint: congestion ache all over Mode of Arrival: Ambulatory Source of Information: Patient Limitations: No Limitations Time Seen by Provider: 04/21/22 16:41 Description of Symptoms (Recalled from Triage Doc. by RN): HELTON, body aches, congestion, bilateral ear pain, sore throat HEENT Symptoms (Recalled from RN notes): Yes Resp Symptoms (Recalled from RN notes): Yes Skin Symptoms (Recalled from RN notes): No MS Symptoms (Recalled from RN notes): No Functional Status (Recalled from RN notes): n/a History of Present Illness Provider Complaint: Patient states that she was fine last night and when she woke up this morning she was having body aches, chills, nasal congestion, headache and sore throat States that she feels like she did when she had the flu Related Data Home Medications Medication Instructions Recorded Confirmed omeprazole 20 mg capsule,delayed 20 mg PO BID GERD 04/22/18 10/26/20 release insulin glargine 100 unit/mL (3 34 unit SQ HS Diabetes 04/16/20 06/13/21 mL) subcutaneous pen (Basaglar KwikPen U-100 Insulin) celecoxib 100 mg capsule 100 mg PO DAILY Arthritis 10/26/20 10/26/20 losartan 50 mg-hydrochlorothiazide 1 each PO DAILY bp 10/26/20 10/26/20 12.5 mg tablet Previous Rx's Medication Instructions Recorded amoxicillin 500 mg capsule 500 mg PO TID #30 caps 06/13/21 Allergies Allergy/AdvReac Type Severity Reaction Status Date / Time metformin Allergy Severe S-ANAPHYLAX Verified 10/29/20 11:41 IS silver Allergy Intermediate I-RASH Verified 10/29/20 11:41 Sulfa (Sulfonamide Allergy Unknown KIDNEY Verified 06/13/21 09:39 Antibiotics) PROBLEMS Worker's Comp Is this a Worker's Comp case?: No PFSH PFSH Social History Smoking Status: Never smoker alcohol intake: never substance use type: denies use current occupational status: employed Travel in the last 8 weeks: None current occupational exposures/hazards: No caffeine: No ROS Obtained: Yes All systems reviewed & no additional complaints except as documented and Yes Systems reviewed as appropriate & no additional complaints except as documented Constitutional Const
[2022-04-21 17:08] LABS: UTC Strep Screen (Rapid) Positive (Negative)
[2022-04-21 17:19] VITALS: BP 156/92; PULSE 104; RESP 18; TEMP 36.8; O2SAT 100
[2022-04-21 18:08] LABS: Adenovirus,PCR Not Detected (NotDetected); Bordetella Pertussis Not Detected (NotDetected); Chlamydophila Pneumoniae, PCR Not Detected (NotDetected); Coronavirus 229E Not Detected (NotDetected); Coronavirus NL63 Not Detected (NotDetected); Coronavirus OC43 Not Detected (NotDetected); Coronovirus HKU1,PCR Not Detected (NotDetected); Human Metapneumovirus Not Detected (NotDetected); Influenza A, PCR Not Detected (NotDetected); Influenza AH1, 2009 Not Detected (NotDetected); Influenza AH1, PCR Not Detected (NotDetected); Influenza AH3,PCR Not Detected (NotDetected); Influenza B, PCR Not Detected (NotDetected); Mycoplasma Pneumoniae, PCR Not Detected (NotDetected); Parainfluenza 1, PCR Not Detected (NotDetected); Parainfluenza 2, PCR Not Detected (NotDetected); Parainfluenza 3, PCR Not Detected (NotDetected); Parainfluenza 4, PCR Not Detected (NotDetected); Respiratory Syncytial Virus Not Detected (NotDetected); Rhinovirus/Enterovirus Not Detected (NotDetected)
[2022-04-21 22:37] LABS: Coronavirus 19, PCR Detected (NotDetected)
== END 2022-04-21 17:20 | disposition home or self-care (01) ==
PROVIDERS: Emergency Provider Nurse Practitioner; PCP Nurse Practitioner Family
DX: U07.1 COVID-19 (principal); J02.0 Streptococcal pharyngitis; B95.0 Streptococcus, group A, as the cause of diseases classified elsewhere; H92.03 Otalgia, bilateral; R51.9 Headache, unspecified; M79.10 Myalgia, unspecified site; Z79.4 Long term (current) use of insulin; Z79.899 Other long term (current) drug therapy; Z88.2 Allergy status to sulfonamides; Z88.8 Allergy status to other drugs, medicaments and biological substances; Z91.048 Other nonmedicinal substance allergy status; Z87.891 Personal history of nicotine dependence
CPT/HCPCS: 87581; 87632; 87798; 87804; 87880; 99213; C9803; G0463; U0003; U0005

== ENCOUNTER 2022-04-24 12:10 | Emergency (ER) | payer MEDICARE, SELFPAY ==
[2022-04-24] VITALS (9 sets, daily range): BP systolic 125–162; BP diastolic 65–99; PULSE 77–102; RESP 16–20; TEMP 36.6–36.9; O2SAT 95–99; BMI 35.0
--- NOTE | 2022-04-24 12:15 | ECG_ITS ---
APPROVED REPORT Exam: Resting ECG HR:93 bpm ECG Measurements Heart Rate 93 AXES NM 137 P 34 QRSd 86 QRS -25 QT 353 T 15 QTc 403 Conclusion SINUS RHYTHM LOW QRS VOLTAGE IN PRECORDIAL LEADS [QRS DEFLECTION < 1.0 mV IN CHEST LEADS] MODERATE VOLTAGE CRITERIA FOR LVH, CONSIDER NORMAL VARIANT [MEETS CRITERIA IN ONE OF: R(aVL), S(V1), R(V5), R(V5/V6)+S(V1)] POSSIBLE ANTERIOR MYOCARDIAL INFARCTION , PROBABLY OLD [30 ms Q WAVE IN V3/V4, OR R < 0.2 mV IN V4] BORDERLINE ECG UNCONFIRMED REPORT Electronically signed by : Juan Zavala MD 04/24/2022 21:05:55
--- NOTE | 2022-04-24 12:30 | HMH.EDGENADL ---
Discharge Plan Disposition Patient Disposition: Home, Self-Care Condition: Good Prescriptions Prescriptions: New Paxlovid (EUA) 300 mg (150 mg x 2)-100 mg tablets,dose pack See Rx Instructions .Route .COMPLEX Qty: 30 0RF Rx Instructions: take TWO 150 mg tablets of nirmatrelvir with ONE 100 mg tablet of ritonavir twice daily for 5 days No Action omeprazole 20 mg capsule,delayed release(DR/EC) 20 mg PO BID Basaglar CarlosikPen U-100 Insulin 100 unit/mL (3 mL) insulin pen 34 unit SQ HS losartan-hydrochlorothiazide 1 EACH tablet 1 each PO DAILY celecoxib 100 MG capsule 100 mg PO DAILY amoxicillin 500 MG capsule 500 mg PO TID Qty: 30 0RF cefdinir 300 mg capsule 300 mg PO BID Qty: 20 0RF Activity Restrictions/Add. Instructions Additional Instructions/Restrictions: Begin taking aspirin 81 mg daily, start tomorrow. Follow-up with Dr. Zavala in the office Thursday, call for appointment. Return to the emergency department if symptoms worsen. ADDITIONAL INSTRUCTIONS FOR COVID-19: Rest, drink plenty of fluids. Tylenol or Ibuprofen for fever and/or aches and pains. Monitor your symptoms. IF YOU HAVE AN EMERGENCY WARNING SIGN (INCLUDING TROUBLE BREATHING), SEEK EMERGENCY MEDICAL CARE IMMEDIATELY. COVID-19 Isolation: People with COVID-19 should isolate for 5 days. Then if they are asymptomatic (no symptoms) or their symptoms are resolving (without fever for 24 hours), follow that by 5 days of wearing a mask when around others to minimize the risk of infecting people you encounter. If you test positive for COVID-19 and never develop symptoms, day 0 is the day of your positive viral test (based on the date you were tested) and day 1 is the first full day after your positive test. If you develop symptoms after testing positive, your 5-day isolation period must start over. Day 0 is your first day of symptoms. Day 1 is the first full day after your symptoms developed. What to do: Stay in a separate room from other household members, if possible. Use a separate bathroom, if possible. Avoid contact with other members of the household and pets. Don?t share personal household items, like cups, towels, and utensils. Wear a mask when around other people if able. Clinical Impressions Clinical Impression: Acute left-sided weakness, COVID-19 virus infection, Acute streptococcal pharyngitis Discharge ED Provider: Daniel Horton General Adult HPI General Chief complaint: Weakness Stated complaint: Covid + Time Seen by Provider: 04/24/22 12:30 History of Present Illness HPI narrative: Patient states that this morning when she awakened at about 8 AM she noticed that her left leg and arm felt weak and asleep . She says when she walks her left foot collapsed to the ground and her left leg feels weak and wobbly. She says symptoms have improved since onset but are still present. Denies headache. She feels her vision is hard to focus, but otherwise no visual symptoms. No speech symptoms. No prior similar symptoms. She has a history of neuropathy which causes some problems with her feet, but has never had this left-sided weakness before. She currently has COVID and strep. She says that she was seen in the urgent treatment center here on Thursday and tested positive for COVID and strep. Says that she has had problems eating with nausea and vomiting and feeling generally weak. Related Data Home Medications Medication Instructions Recorded Confirmed omeprazole 20 mg capsule,delayed 20 mg PO BID GERD 04/22/18 10/26/20 release insulin glargine 100 unit/mL (3 34 unit SQ HS Diabetes 04/16/20 06/13/21 mL) subcutaneous pen (Basaglar KwikPen U-100 Insulin) celecoxib 100 mg capsule 100 mg PO DAILY Arthritis 10/26/20 10/26/20 losartan 50 mg-hydrochlorothiazide 1 each PO DAILY bp 10/26/20 10/26/20 12.5 mg tablet Previous Rx's Medication Instructions Recorded amoxicil
--- NOTE | 2022-04-24 12:41 | CT_ITS ---
FINAL REPORT CLINICAL HISTORY: L arm and leg weakness FINDINGS: Axial images of the head were obtained without contrast. Coronal reformatted images were also obtained. This study was performed with techniques to keep radiation doses as low as reasonably achievable (ALARA). Individualized dose reduction techniques using automated exposure control or adjustment of mA and/or kV according to the patient's size were employed. There is generalized age-appropriate atrophy. Periventricular low-attenuation areas are seen consistent with mild chronic ischemic changes. There is no evidence of intracranial hemorrhage or mass. There is no evidence of acute infarct. There is no evidence of shift of the midline structures. No skull abnormality is seen on the bone window images. There is mild mucosal thickening in the left maxillary sinus. IMPRESSION: Atrophy and mild periventricular chronic ischemic changes. No acute intracranial abnormality identified. Reviewed, Interpreted and Dictated by Reza Serrano III, MD Transcribed by Oneil Griffith Authenticated and [facility]
--- NOTE | 2022-04-24 12:41 | CT_ITS ---
FINAL REPORT CLINICAL HISTORY: L arm and leg weakness FINDINGS: Thin section axial CT with IV contrast supplemented with multiplanar reconstruction under CT angiogram protocol. This study was performed with techniques to keep radiation doses as low as reasonably achievable (ALARA). Individualized dose reduction techniques using automated exposure control or adjustment of mA and/or kV according to the patient''s size were employed. NASCET criteria was utilized during interpretation. Aortic arch: Arch shows no significant narrowing. Great vessel origins are widely patent. Right carotid: No significant stenosis is seen of the cervical common or internal carotid artery. Left carotid: No significant stenosis is seen of the cervical common or internal carotid artery. Vertebral: Left vertebral artery is dominant. No significant stenosis is present. There are diffuse bilateral pulmonary ground-glass opacities in the lung apices. IMPRESSION: No significant stenosis. Diffuse pulmonary ground-glass opacities could represent edema or pneumonia. Reviewed, Interpreted and Dictated by Reza Serrano III, MD Transcribed by Oneil Griffith Authenticated and [facility]
--- NOTE | 2022-04-24 12:41 | CT_ITS ---
FINAL REPORT TECHNIQUE: Multiple axial CT angiography images were performed from the foramen magnum to the vertex before and during IV contrast administration. This study was performed with techniques to keep radiation doses as low as reasonably achievable (ALARA). Individualized dose reduction techniques using automated exposure control or adjustment of mA and/or kV according to the patient's size were employed. CLINICAL HISTORY: L arm and leg weakness FINDINGS: No acute intracranial hemorrhage or large acute cortical infarct. The brain volume is normal for the patient's age. Ventricles are of bracket normal in size and configuration. No midline shift. The basal cisterns are patent. CTA HEAD: The major intracranial arterial system is patent without hemodynamically significant stenosis or major vessel occlusion.No aneurysm is identified. IMPRESSION: No acute intracranial hemorrhage or large acute cortical infarct. No evidence of vascular injury, aneurysm, hemodynamically significant stenosis or major vessel occlusion of the intracranial arterial system. Reviewed, Interpreted and Dictated by Reza Serrano III, MD Transcribed by Oneil Griffith Authenticated and [facility]
[2022-04-24 12:57] LABS: Basophils # 0.1 K/mm3 (0-0.2); Basophils % 1.4 % (0.1-2.0); Eosinophils # 0.1 K/mm3 (0.0-0.4); Eosinophils % 1.3 % (0.1-12.0); Hematocrit 48.9 % (37.0-47.0); Hemoglobin 15.4 g/dL (12.2-16.2); Lymphocytes # 1.8 K/mm3 (0.7-4.5); Lymphocytes % 26.3 % (10-50); Mean Corpuscular HGB Conc 31.6 g/dL (31.8-35.4); Mean Corpuscular Hemoglobin 29.1 pg (27.0-31.2); Mean Corpuscular Volume 92.3 fl (81-99); Mean Platelet Volume 9.5 fl (7.4-10.4); Monocytes # 0.5 K/mm3 (0.1-1.0); Monocytes % 6.5 % (1.7-9.3); Neutrophils # 4.5 K/mm3 (1.8-7.8); Neutrophils % 64.6 % (37.0-80.0); Platelet Count 192 K/mm3 (142-424); Red Cell Distribution Width 13.5 % (11.5-17.5); White Blood Count 6.9 K/mm3 (4.8-10.8)
[2022-04-24 13:02] LABS: POC Glucose,Bedside 287 (70-110)
[2022-04-24 13:04] LABS: Alanine Aminotransferase 37 U/L (12-78); Albumin Level 4.1 g/dl (3.5-5.0); Albumin/Globulin Ratio 1.3 (1.1-1.8); Alkaline Phosphatase 152 U/L (38-126); Aspartate Amino Transferase 51 U/L (14-36); Bilirubin,Total 0.7 mg/dl (0.2-1.3); Blood Urea Nitrogen 14 mg/dl (7-17); Calcium 8.7 mg/dl (8.4-10.2); Carbon Dioxide 23 mmol/L (22.0-30.0); Chloride 102 mmol/L (98-107); Creatinine Clearance Estimated 76 mL/min (50-200); Estimated Glomerular Filt Rate 123 ml/min (>60); GFR (African American) 148 ML/MIN (>60); Globulin 3.2 g/dL (1.3-3.2); Glucose 321 mg/dl (74-100); Sodium 137 mmol/L (136-145); Total Protein,Serum 7.3 g/dl (6.3-8.2)
--- NOTE | 2022-04-24 13:27 | PC.NURSE ---
pt to RAD via WC
--- NOTE | 2022-04-24 14:39 | PC.NURSE ---
JOHAN SPEAKING TO MARGOTH AT THIS TIME
--- NOTE | 2022-04-24 14:56 | XR_ITS ---
FINAL REPORT CLINICAL HISTORY: covid COMPARISON: April 2018 FINDINGS: The heart size is normal. The mediastinum is within normal limits. There is no acute cardiopulmonary process. There is no pleural effusion. There is no pneumothorax. The bony thorax is intact. IMPRESSION: No acute cardiopulmonary process. Reviewed, Interpreted and Dictated by Reza Serrano III, MD Transcribed by Oneil Griffith Authenticated and [facility]
== END 2022-04-24 16:21 | disposition home or self-care (01) ==
PROVIDERS: Emergency Provider Emergency Medicine
DX: U07.1 COVID-19 (principal); J02.0 Streptococcal pharyngitis; R53.1 Weakness
CPT/HCPCS: 70450; 70496; 70498; 71045; 80053; 82962; 85025; 93005; 99285; Q9967

== ENCOUNTER 2022-04-25 05:22 | Emergency (ER) | payer MEDICARE, SELFPAY ==
[2022-04-25 05:23] VITALS: BP 179/87; PULSE 98; RESP 21; TEMP 36.9; O2SAT 97; BMI 33.6
--- NOTE | 2022-04-25 05:48 | HMH.EDURI ---
Discharge Plan Disposition Patient Disposition: Home, Self-Care Chief Complaint: Upper Respiratory Infection Prescriptions Prescriptions: No Action omeprazole 20 mg capsule,delayed release(DR/EC) 20 mg PO BID Basaglar KwikPen U-100 Insulin 100 unit/mL (3 mL) insulin pen 34 unit SQ HS losartan-hydrochlorothiazide 1 EACH tablet 1 each PO DAILY celecoxib 100 MG capsule 100 mg PO DAILY cefdinir 300 mg capsule 300 mg PO BID Paxlovid (EUA) 300 mg (150 mg x 2)-100 mg tablets,dose pack See Rx Instructions .ROUTE .COMPLEX Rx Instructions: take TWO 150 mg tablets of nirmatrelvir with ONE 100 mg tablet of ritonavir twice daily for 5 days Referrals Follow up/Referrals: Enedelia Hart APRN [Primary Care Provider] - See instructions Clinical Impressions Clinical Impression: COVID-19, Weakness generalized Instructions Patient Instructions: DI for COVID-19 (Suspected or Confirmed ) Discharge ED Provider: Tai Moyer URI/Sore Throat HPI General Chief Complaint: Upper Respiratory Infection Stated Complaint: Covid +, Strep, leg weakness Time Seen by Provider: 04/25/22 05:49 Mode of Arrival: Wheelchair Source of Information: Patient and Medical Record Limitations: No Limitations Description of Symptoms (Recalled from ER Triage Doc. by RN): Pt c/o weakness, chills, diahoresis, and generally feeling unwell. Pt tested + for COVID and strep 04/21 and was evaluated 04/24 in the ED. History of Present Illness HPI Narrative: has weakness and not feeling well over the last few days - recent dx of covid-19 MD Complaint: other (weakness) Onset (ago): day(s) Severity: moderate Associated symptoms: denies other symptoms Related Data Home Medications Medication Instructions Recorded Confirmed omeprazole 20 mg capsule,delayed 20 mg PO BID GERD 04/22/18 04/25/22 release insulin glargine 100 unit/mL (3 34 unit SQ HS Diabetes 04/16/20 04/25/22 mL) subcutaneous pen (Basaglar KwikPen U-100 Insulin) celecoxib 100 mg capsule 100 mg PO DAILY Arthritis 10/26/20 04/25/22 losartan 50 mg-hydrochlorothiazide 1 each PO DAILY bp 10/26/20 04/25/22 12.5 mg tablet cefdinir 300 mg capsule 300 mg PO BID Strep 04/25/22 04/25/22 nirmatrelvir 300 mg (150 mg See Rx Instructions .Route 04/25/22 04/25/22 x2)-ritonavir 100 mg tablet,dose .COMPLEX COVID pack(EUA) (Paxlovid) Allergies Allergy/AdvReac Type Severity Reaction Status Date / Time metformin Allergy Severe S-ANAPHYLAX Verified 10/29/20 11:41 IS silver Allergy Intermediate I-RASH Verified 10/29/20 11:41 Sulfa (Sulfonamide Allergy Unknown KIDNEY Verified 06/13/21 09:39 Antibiotics) PROBLEMS PFSH PFSH Social History Smoking Status: Former smoker alcohol intake: never substance use type: denies use current occupational status: employed Travel in the last 8 weeks: None current occupational exposures/hazards: No caffeine: No ROS Obtained: Yes All systems reviewed & no additional complaints except as documented Constitutional Constitutional: Reports weakness Neurologic Neurologic: Reports weakness Physical Exam General General appearance: alert and obese Head Head exam: normocephalic Eye Eye exam: Present PERRL and EOMI ENT ENT exam: Present mucous membranes moist Neck Neck exam: Absent trachea midline Respiratory Respiratory exam: Present normal lung sounds bilaterally; Absent respiratory distress Cardiovascular Cardiovascular exam: Present regular rate Abdominal Exam Abdominal exam: Present soft Extremities Exam Extremities exam: Present full ROM Neurological Exam Neurological exam: Present alert, oriented X3, CN II-XII intact and reflexes normal Psychiatric Psychiatric exam: Present normal affect Skin Skin exam: Absent rash Medical Decision Making Medical Records Medical records reviewed: Yes I reviewed the patient's medical records. [employer] Inquiry Pt receiving controlled subst
[2022-04-25 05:58] LABS: Basophils # 0.1 K/mm3 (0-0.2); Basophils % 1.4 % (0.1-2.0); Eosinophils # 0.1 K/mm3 (0.0-0.4); Eosinophils % 2.5 % (0.1-12.0); Hematocrit 44.5 % (37.0-47.0); Hemoglobin 14.9 g/dL (12.2-16.2); Lymphocytes # 1.6 K/mm3 (0.7-4.5); Lymphocytes % 27.9 % (10-50); Mean Corpuscular HGB Conc 33.6 g/dL (31.8-35.4); Mean Corpuscular Hemoglobin 30.1 pg (27.0-31.2); Mean Corpuscular Volume 89.7 fl (81-99); Mean Platelet Volume 9.5 fl (7.4-10.4); Monocytes # 0.4 K/mm3 (0.1-1.0); Monocytes % 6.1 % (1.7-9.3); Neutrophils # 3.6 K/mm3 (1.8-7.8); Neutrophils % 62.2 % (37.0-80.0); Platelet Count 172 K/mm3 (142-424); Red Blood Count 4.96 M/mm3 (4.20-5.40); Red Cell Distribution Width 13.5 % (11.5-17.5); White Blood Count 5.8 K/mm3 (4.8-10.8)
[2022-04-25 05:59] LABS: Chloride 100 mmol/L (98-107)
[2022-04-25 06:00] VITALS: BP 144/79; PULSE 73; O2SAT 98
[2022-04-25 06:00] LABS: Potassium 3.6 mmoL/L (3.5-5.1); Sodium 139 mmol/L (136-145)
[2022-04-25 06:03] LABS: Alanine Aminotransferase 31 U/L (12-78); Albumin Level 4.1 g/dl (3.5-5.0); Albumin/Globulin Ratio 1.3 (1.1-1.8); Alkaline Phosphatase 148 U/L (38-126); Anion Gap 16.6 mEq/L (5-15); Aspartate Amino Transferase 40 U/L (14-36); Bilirubin,Total 0.8 mg/dl (0.2-1.3); Blood Urea Nitrogen 12 mg/dl (7-17); Calcium 8.6 mg/dl (8.4-10.2); Carbon Dioxide 26 mmol/L (22.0-30.0); Creatinine Clearance Estimated 73 mL/min (50-200); Estimated Glomerular Filt Rate 99 ml/min (>60); GFR (African American) 120 ML/MIN (>60); Globulin 3.2 g/dL (1.3-3.2); Glucose 289 mg/dl (74-100); Total Protein,Serum 7.3 g/dl (6.3-8.2)
[2022-04-25 06:30] VITALS: BP 138/74; PULSE 74; O2SAT 97
--- NOTE | 2022-04-25 06:46 | PC.NURSE ---
Pt assisted to br via wc at this time. UA obtained
[2022-04-25 06:52] LABS: Microscopic, Urine URINE MICROSCOPIC (MICROSCOPIC)
[2022-04-25 07:00] LABS: Appearance,Urine CLEAR (Clear); Bilirubin,Urine Negative (Negative); Blood, Urine Negative (Negative); Color,Urine YELLOW (Yellow); Glucose,Urine (UA) 3+ (Negative); Ketones,Urine TRACE (Negative); Leukocyte Esterase,Urine Negative (Negative); Nitrate,Urine Negative (Negative); Protein,Urine Negative (Negative); Specific Gravity, Urine 1.025 (1.005-1.030); Urobilinogen,Urine 0.2 EU/dl (0.2)
[2022-04-25 07:20] LABS: Amorphous Sediment,Urine Trace /lpf; Bacteria,Urine Trace /lpf
--- NOTE | 2022-04-25 07:54 | PC.NURSE ---
pt ambulating well around room with staff only holding pt hands. pt states is just very weak
[2022-04-25 08:22] VITALS: BP 141/75; PULSE 79; RESP 19; TEMP 36.9; O2SAT 98
--- NOTE | 2022-04-25 08:27 | PC.NURSE ---
OLEGARIO IN CARE MANAGEMENT NOTIFIED THAT PT NEEDS WALKER. WILL CONTACT [facility] AND HAVE WALKER DELIVERED
--- NOTE | 2022-04-25 09:20 | CARE MANAGER ---
Alexandra from ER called and states that patient will need a walker for home use, order and demographics faxed to [facility]. They will deliver to patient home.
== END 2022-04-25 08:22 | disposition home or self-care (01) ==
PROVIDERS: Emergency Provider Emergency Medicine; PCP Nurse Practitioner Family
DX: U07.1 COVID-19 (principal); Z79.4 Long term (current) use of insulin; Z79.899 Other long term (current) drug therapy; Z88.2 Allergy status to sulfonamides; Z88.8 Allergy status to other drugs, medicaments and biological substances; Z87.891 Personal history of nicotine dependence; E11.9 Type 2 diabetes mellitus without complications; K21.9 Gastro-esophageal reflux disease without esophagitis; M19.90 Unspecified osteoarthritis, unspecified site
CPT/HCPCS: 80053; 81001; 85025; 96365; 99284

== ENCOUNTER → 2022-08-15 07:43 | Outpatient (CLI) | payer MEDICARE, SELFPAY ==
[2022-08-15 08:31] LABS: Basophils # 0.1 K/mm3 (0-0.2); Basophils % 0.8 % (0.1-2.0); Eosinophils # 0.2 K/mm3 (0.0-0.4); Eosinophils % 1.7 % (0.1-12.0); Hematocrit 45.4 % (37.0-47.0); Hemoglobin 14.6 g/dL (12.2-16.2); Lymphocytes % 18.8 % (10-50); Mean Corpuscular HGB Conc 32.2 g/dL (31.8-35.4); Mean Corpuscular Hemoglobin 29.7 pg (27.0-31.2); Mean Corpuscular Volume 92.2 fl (81-99); Mean Platelet Volume 8.7 fl (7.4-10.4); Monocytes # 0.5 K/mm3 (0.1-1.0); Monocytes % 5.2 % (1.7-9.3); Neutrophils # 7.7 K/mm3 (1.8-7.8); Neutrophils % 73.6 % (37.0-80.0); Platelet Count 242 K/mm3 (142-424); Red Blood Count 4.93 M/mm3 (4.20-5.40); Red Cell Distribution Width 13.7 % (11.5-17.5); White Blood Count 10.4 K/mm3 (4.8-10.8)
[2022-08-15 09:03] LABS: Alanine Aminotransferase 32 U/L (12-78); Albumin Level 4.4 g/dl (3.5-5.0); Albumin/Globulin Ratio 1.6 (1.1-1.8); Alkaline Phosphatase 118 U/L (38-126); Anion Gap 10.7 mEq/L (5-15); Aspartate Amino Transferase 39 U/L (14-36); Bilirubin,Total 0.9 mg/dl (0.2-1.3); Blood Urea Nitrogen 14 mg/dl (7-17); Calcium 9.4 mg/dl (8.4-10.2); Carbon Dioxide 28 mmol/L (22.0-30.0); Chloride 104 mmol/L (98-107); Estimated Glomerular Filt Rate 99 ml/min (>60); GFR (African American) 120 ML/MIN (>60); Globulin 2.8 g/dL (1.3-3.2); Glucose 209 mg/dl (74-100); Magnesium 1.6 mg/dl (1.6-2.3); Potassium 3.7 mmoL/L (3.5-5.1); Sodium 139 mmol/L (136-145); Total Protein,Serum 7.2 g/dl (6.3-8.2)
[2022-08-15 09:06] LABS: Hemoglobin A1C 8.2 % (4.0-6.0)
[2022-08-15 09:19] LABS: 25-OH Vitamin D, Total 51.1 ng/mL (30-100)
[2022-08-15 09:32] LABS: Thyroid Stimulating Hormone 2.71 uIU/mL (0.465-4.68)
[2022-08-15 09:51] LABS: Vitamin B12 590 pg/mL (239-931)
== END ==
PROVIDERS: PCP Internal Medicine Adolescent Medicine; Visit Provider Internal Medicine Adolescent Medicine
DX: E11.40 Type 2 diabetes mellitus with diabetic neuropathy, unspecified (principal); E55.9 Vitamin D deficiency, unspecified; E78.01 Familial hypercholesterolemia; I69.354 Hemiplegia and hemiparesis following cerebral infarction affecting left non-dominant side; E66.9 Obesity, unspecified; Z68.34 Body mass index [BMI] 34.0-34.9, adult; Z79.4 Long term (current) use of insulin; Z78.9 Other specified health status
CPT/HCPCS: 36415; 80053; 82306; 82607; 83036; 83735; 84443; 85025

== ENCOUNTER → 2022-12-18 10:32 | Outpatient (CLI) | payer MEDICARE, SELFPAY ==
[2022-12-18 11:47] LABS: Basophils % 0.4 % (0.1-2.0); Eosinophils # 0.1 K/mm3 (0.0-0.4); Eosinophils % 1.4 % (0.1-12.0); Hematocrit 45.9 % (37.0-47.0); Hemoglobin 15.1 g/dL (12.2-16.2); Lymphocytes # 2.1 K/mm3 (0.7-4.5); Lymphocytes % 21.6 % (10-50); Mean Corpuscular HGB Conc 32.9 g/dL (31.8-35.4); Mean Corpuscular Hemoglobin 29.6 pg (27.0-31.2); Mean Corpuscular Volume 89.8 fl (81-99); Mean Platelet Volume 10.1 fl (7.4-10.4); Monocytes # 0.6 K/mm3 (0.1-1.0); Monocytes % 6.3 % (1.7-9.3); Neutrophils # 6.8 K/mm3 (1.8-7.8); Neutrophils % 70.4 % (37.0-80.0); Platelet Count 224 K/mm3 (142-424); Red Blood Count 5.11 M/mm3 (4.20-5.40); Red Cell Distribution Width 13.3 % (11.5-17.5); White Blood Count 9.7 K/mm3 (4.8-10.8)
[2022-12-18 12:03] LABS: Hemoglobin A1C 8.8 % (4.0-6.0)
[2022-12-18 12:10] LABS: Alanine Aminotransferase 36 U/L (12-78); Albumin Level 4.4 g/dl (3.5-5.0); Albumin/Globulin Ratio 1.5 (1.1-1.8); Alkaline Phosphatase 124 U/L (38-126); Anion Gap 17.3 mEq/L (5-15); Aspartate Amino Transferase 44 U/L (14-36); Bilirubin,Total 0.8 mg/dl (0.2-1.3); Blood Urea Nitrogen 15 mg/dl (7-17); Calcium 9.5 mg/dl (8.4-10.2); Carbon Dioxide 28 mmol/L (22.0-30.0); Chloride 100 mmol/L (98-107); Chol/HDL Ratio 4.3 (1-3.5); Cholesterol 256 mg/dl (140-200); Estimated Glomerular Filt Rate 122 ml/min (>60); GFR (African American) 148 ML/MIN (>60); Globulin 2.9 g/dL (1.3-3.2); Glucose 224 mg/dl (74-100); HDL Cholesterol 60 mg/dl (40-60); Magnesium 1.6 mg/dl (1.6-2.3); Potassium 4.3 mmoL/L (3.5-5.1); Sodium 141 mmol/L (136-145); Total Protein,Serum 7.3 g/dl (6.3-8.2); Triglycerides 178 mg/dl (30-150); VLDL Cholesterol 36 mg/dL (0-40)
[2022-12-18 12:22] LABS: Direct LDL Cholesterol 150.48 mg/dL (100-129)
[2022-12-18 12:41] LABS: Thyroid Stimulating Hormone 1.56 uIU/mL (0.465-4.68)
[2022-12-18 13:01] LABS: Vitamin B12 595 pg/mL (239-931)
== END ==
PROVIDERS: PCP Internal Medicine Adolescent Medicine; Visit Provider Internal Medicine Adolescent Medicine
DX: E11.40 Type 2 diabetes mellitus with diabetic neuropathy, unspecified (principal); E78.01 Familial hypercholesterolemia; G62.9 Polyneuropathy, unspecified; I69.354 Hemiplegia and hemiparesis following cerebral infarction affecting left non-dominant side; Z79.4 Long term (current) use of insulin; Z79.899 Other long term (current) drug therapy
CPT/HCPCS: 36415; 80053; 80061; 82607; 83036; 83735; 84443; 85025

== ENCOUNTER → 2023-04-18 09:13 | Outpatient (CLI) | payer MEDICARE, SELFPAY ==
[2023-04-18 16:11] LABS: Chol/HDL Ratio 4.7 (1-3.5); Cholesterol 264 mg/dl (140-200); HDL Cholesterol 56 mg/dl (40-60); Triglycerides 168 mg/dl (30-150); VLDL Cholesterol 34 mg/dL (0-40)
[2023-04-18 20:22] LABS: Direct LDL Cholesterol 184.49 mg/dL (100-129)
[2023-04-20 12:45] LABS: Hemoglobin A1C 7.8 % (4.0-6.0)
== END ==
PROVIDERS: PCP Internal Medicine Adolescent Medicine; Visit Provider Internal Medicine Adolescent Medicine
DX: E78.01 Familial hypercholesterolemia (principal); E11.40 Type 2 diabetes mellitus with diabetic neuropathy, unspecified; Z79.4 Long term (current) use of insulin
CPT/HCPCS: 36415; 80061; 83036

== ENCOUNTER 2023-10-03 09:20 | Outpatient (CLI) | payer MEDICARE, MEDICAID, SELFPAY ==
[2023-10-03 09:49] LABS: Basophils # 0.2 K/mm3 (0-0.2); Basophils % 1.8 % (0.1-2.0); Eosinophils # 0.2 K/mm3 (0.0-0.4); Eosinophils % 1.6 % (0.1-12.0); Hemoglobin 14.8 g/dL (12.2-16.2); Lymphocytes # 2.2 K/mm3 (0.7-4.5); Lymphocytes % 23.6 % (10-50); Mean Corpuscular HGB Conc 32.1 g/dL (31.8-35.4); Mean Corpuscular Hemoglobin 30.4 pg (27.0-31.2); Mean Corpuscular Volume 94.7 fl (81-99); Mean Platelet Volume 8.9 fl (7.4-10.4); Monocytes # 0.6 K/mm3 (0.1-1.0); Neutrophils # 6.2 K/mm3 (1.8-7.8); Neutrophils % 66.9 % (37.0-80.0); Platelet Count 229 K/mm3 (142-424); Red Blood Count 4.86 M/mm3 (4.20-5.40); Red Cell Distribution Width 13.7 % (11.5-17.5); White Blood Count 9.2 K/mm3 (4.8-10.8)
[2023-10-03 10:41] LABS: Hemoglobin A1C 9.4 % (4.0-6.0)
[2023-10-03 11:23] LABS: Alanine Aminotransferase 28 U/L (12-78); Albumin Level 4.5 g/dl (3.5-5.0); Albumin/Globulin Ratio 1.7 (1.1-1.8); Alkaline Phosphatase 117 U/L (38-126); Anion Gap 13.1 mEq/L (5-15); Aspartate Amino Transferase 37 U/L (14-36); Bilirubin,Total 0.8 mg/dl (0.2-1.3); Blood Urea Nitrogen 15 mg/dl (7-17); Calcium 9.9 mg/dl (8.4-10.2); Carbon Dioxide 27 mmol/L (22.0-30.0); Chloride 104 mmol/L (98-107); Chol/HDL Ratio 5.4 (1-3.5); Cholesterol 270 mg/dl (140-200); Estimated Glomerular Filt Rate 99 ml/min (>60); GFR (African American) 120 ML/MIN (>60); Globulin 2.7 g/dL (1.3-3.2); Glucose 238 mg/dl (74-100); HDL Cholesterol 50 mg/dl (40-60); Potassium 4.1 mmoL/L (3.5-5.1); Sodium 140 mmol/L (136-145); Total Protein,Serum 7.2 g/dl (6.3-8.2); Triglycerides 204 mg/dl (30-150); VLDL Cholesterol 41 mg/dL (0-40)
[2023-10-03 11:34] LABS: Direct LDL Cholesterol 156.15 mg/dL (100-129)
[2023-10-03 11:54] LABS: Thyroid Stimulating Hormone 1.96 uIU/mL (0.465-4.68)
== END 2023-10-03 23:59 ==
LOC: LAB 09:22
PROVIDERS: PCP Internal Medicine Adolescent Medicine; Visit Provider Internal Medicine Adolescent Medicine
DX: E11.40 Type 2 diabetes mellitus with diabetic neuropathy, unspecified (principal); M19.90 Unspecified osteoarthritis, unspecified site; E78.5 Hyperlipidemia, unspecified; Z79.4 Long term (current) use of insulin
CPT/HCPCS: 36415; 80053; 80061; 83036; 84443; 85025

== ENCOUNTER 2023-11-05 15:00 | Outpatient (RCR) | payer MEDICARE, MEDICAID, SELFPAY ==
--- NOTE | 2023-09-15 16:02 | HMH.OTOPEV ---
OT Inpatient Evaluation Rehab OT Outpatient Eval Start: 08/17/23 15:41 Freq: Status: Active Protocol: Document 08/17/23 15:41 HEIDIBOUCHRA (Rec: 08/17/23 16:09 HUMERA [id number]) E-signed By Fabby Rdz, OT Outpatient Therapy Subjective History Subjective History 68 year old female referred to skilled OP OT services for L UE shld and arm weakness. Patient had a CVA affecting L UE and LLE in Mar 2022. Patient recieved [facility] rehab, [facility] rehab and services. Patient currently lives alone with family who lives next door. Patient reported being independent with ADLs and fx'l mobility. Patient uses a sarah walker to ambulate. No hx of falling. Family/friends provide transportation. Chief Complaint Pain Symptom Type Ache Symptoms Relieved By Nothing Symptoms Aggravated By Physical Activity Prior Functional Limitations None Current Functional Limitations Reaching,Lifting,Recreation Activity Level of pain today (0-10) 0 Pain scale - at its best (0-10) 0 Pain scale - at its worst (0-10) 0 Shoulder/Elbow Eval Shoulder Objective Measurements Shoulder ROM Left Shoulder Abduction Active Range of 90 Motion (degrees) Shoulder Flexion Active Range of Motion 120 (degrees) Query Text: Shoulder External Rotation Active Range 40 of Motion (degrees) Shoulder Internal Rotation Active Range 50 of Motion (degrees) pain with active ROM shoulder exam left standard Shoulder MMT Shoulder Abduction Strength Grade 2+ Poor+ Shoulder Extension Strength Grade 2+ Poor+ Shoulder Flexion Strength Grade 2+ Poor+ Shoulder Horizontal Abduction Strength 2+ Poor+ Grade Shoulder Horizontal Adduction Strength 2+ Poor+ Grade Infraspinatus/Teres Minor Strength Grade 2+ Poor+ Shoulder External Rotation Strength 2+ Poor+ Grade Shoulder Internal Rotation Strength 2+ Poor+ Grade Elbow Objective Measurements QuickDASH Activities Please rate your ability to do the following activities in the last week by selecting the number below the appropriate response. 1. Open a tight or new jar. No difficulty 2. Do heavy commercial lines account executive (e.g., wash Unable sands, floors). 3. Carry a shopping bag or briefcase. Unable 4. Wash your back. Moderate difficulty 5. Use a knife to cut food. Moderate difficulty 6. Recreational activities in which you Unable take some force or impact through your arm, shoulder, or hand (e.g., golf, hammering, tennis, etc.). 7. During the past week, to what extent Extremely has your arm, shoulder or hand problem interfered with your normal social activities with family, friends, neighbors or groups? 8. During the past week, were you Very limited limited in your work or other regular daily activites as a result of your arm, shoulder or hand problem? 9. Arm, shoulder or hand pain. Moderate 10. Tingling (pins and needles) in your Extreme arm, shoulder or hand. 11. During the past week, how much Moderate difficulty difficulty have you had sleeping because of the pain in your arm, shoulder or hand? Quick DASH 42 OT Outpatient Assessment Impairments Problems/Impairments Impaired Range of Motion, Impaired Strength,Subjective C /O Pain Prognosis Rehab Potential Good Clinical Impression Consistent with Diagnosis Yes Short Term Goals Number of Weeks 2 Increase Range of Motion Yes: Improve AROM of L UE shld flex: 140; abd: 120; er: 50; ir: 60 Increase Strength Yes: Improve L UE shld strength to 2+ to 3-/5 throughout Patient to be Ind w/ HEP Yes: AAROM Patient to be Ind w/ Advanced HEP Yes: Strengthening Improve Quick Dash Score Yes: 35 Profiling Machine Operator Goals Number of Weeks 4 Increase Range of Motion Yes: Improve AROM of L UE shld flex: 150; abd: 140; er: 60; ir: 70 Increase Strength Yes: Improve L UE shld strength to 3-/5 throughout Patient to be Ind w/ HEP Yes: AROM Patient to be Ind w/ Advanced HEP Yes: Advance strengthening Improve Quick Dash Score Yes: 30 Outpatient Therapy Plan of Care Treatment Plan May Include Therapeutic Exercise Including Home Yes Exercise Program Manual Therapy Techniques Yes Therapeutic Activities to Return to Yes Previous Functional/Work Level Thermal Modalities Yes Electrical Stimulation Yes Ultrasound/Phonophoresis Yes Iontophoresis Yes Eval/Re-Eval Yes Aquatic Therapy Yes Frequency Times per week 2x/wk Duration Number of Weeks 4 weeks Addendums This patient is a candidate for social No or vocational rehab? Patient/Guardian verbally acknowledges Yes understanding of treatment program and consents to further treatment? Patient/Guardian verbally acknowledges Yes understanding of diagnosis, prognosis and goals for treatment? Eval Complexity OT Charge 49047 - Low Complexity PHYSICIAN CERTIFICATION: I certify the specified therapy services for Sharon Crump are required, authorized, and reviewed every 30 days.
== END 2023-11-05 15:05 | disposition home or self-care (01) ==
LOC: OT 15:00
PROVIDERS: PCP Internal Medicine Adolescent Medicine; Visit Provider Internal Medicine Adolescent Medicine
DX: M79.622 Pain in left upper arm (principal); R53.1 Weakness
CPT/HCPCS: 97010; 97014; 97110; 97140; 97164; 97165; 97530; G0283

== ENCOUNTER 2023-11-05 16:00 | Outpatient (RCR) | payer MEDICARE, SELFPAY ==
--- NOTE | 2023-08-07 12:12 | HMH.PTOPEV ---
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 Pt reports however, some regression in left hand tone, left ankle tone (PF,INV) over the last couple months. Pt reports anxiety since CVA which effects ability to ambulate through yard, in public w/o family close by, and with seeing some medical providers d/t time away from home. PMH: right achilles rupture ( chronic), hand OA (right), chronic LBP New diagnosis of cancer in past 12 No months? Chief Complaint Spasms,Stiff,Paresthesia, Weakness Symptom Type Ache Symptoms Relieved By Rest/Positioning,Activity Symptoms Aggravated By Standing,Walking Prior Functional Limitations Lifting,Housework,Standing, Squatting,Walking,Balance Current Functional Limitations Lifting,Housework,Squatting, Walking,Balance Level of pain today (0-10) 2 Pain scale - at its best (0-10) 2 Pain scale - at its worst (0-10) 6 Lumbopelvic Eval Manual Muscle Test Right Knee Extension Strength Grade 5 Normal Knee Flexion Strength Grade 5 Normal Hip Flexion Strength Grade 4 Good Hip Abduction Strength Grade 4 Good Hip Adduction Strength Grade 4 Good Ankle Dorsiflexion Strength Grade 5 Normal Left Knee Extension Strength Grade 4 Good Knee Flexion Strength Grade 4- Good- Hip Flexion Strength Grade 4- Good- Hip Abduction Strength Grade 4- Good- Hip Adduction Strength Grade 3+ Fair+ Ankle Dorsiflexion Strength Grade 3+ Fair+ Ankle/Foot Eval ROM left Ankle/Foot Dorsiflexion w/Knee Extended +8 Active Range Motion (degrees) Ankle/Foot Dorsiflexion w/Knee Extended 0 Passive Range (degrees) Ankle/Foot Eversion Active Range of +4 Motion (degrees) Ankle/Foot Eversion Passive Range of 0-5 Motion (degrees) Great Toe ROM Limitations Soft Tissue Tightness,Muscle Tone Balance Eval Timed Up and Go Test 1. Is the Timed Up and Go test result > yes or = to 12 seconds? Tinetti Sitting Balance Sitting Balance Steady, safe Arising from Chair Ability to Arise Able, w/o using arms Attempts to Arise Arises on 1st attempt Standing Balance Immediate Standing Balance Steady w/o support Standing Balance Steady, wide stance Nudged Response Staggers, catches self Standing with Eyes Closed Unsteady Turning Step Pattern Turning 360 Degrees Continuous steps Stability Turning 360 Degrees Steady Sitting Down Sitting Down Safe, steady Gait and Step Initiation of Gait No hesitancy Right Foot Step Length Does pass stance foot Right Foot Step Height Completely clears floor Left Foot Step Length Does pass stance foot Left Foot Step Height Does not clear floor Step Description Step Symmetry Step length not equal Step Continuity Steps appear continuous Gait Description Path Description Mild/moderate deviation Trunk Description Marked sway or uses aide Walking Stance Heels together Scoring and Interpretation Tinetti Composite Score (points) 20 Interpretation of Scores At risk for falls (19-24) Outpatient Therapy Assessment Impairments Problems/Impairmments Impaired Range of Motion, Impaired Strength,Impaired Gait Pattern,Impaired Walking, Impaired Standing,Impaired Household Care,Impaired Stair Climbing,Impaired Tinnetti Score,Impaired TUG Time, Subjective C/O Pain,Impaired Self Care/Self Management Prognosis Rehab Potential Good Clinical Impression Consistent with Diagnosis Yes Short Term Goals Number of Weeks 4 Increase Range of Motion Yes: LEFT ANKLE AROM DF +5, PROM 0-5 Increase Strength Yes: 4/5 LLE Improve Gait Pattern with Assistive Yes: WFL W/HEMIWALKER Device Increase Ability to Walk Yes: 10MIN Increase Ability to Stand Yes: 20MIN Improve Ability For Household Care Yes: 20MIN Increase Tinnetti Score Yes: 22 Decrease TUG Time Yes: 16-18SEC W/HEMIWALKER Patient to be Ind w/ HEP Yes Lead Software Engineer Goals Number of Weeks 10-12 Increase Range of Motion Yes: LEFT ANKLE DF AROM 0, PROM 0-10 Increase Strength Yes: 4+/5 LLE Improve Gait Pattern with Assistive Yes: WFL W/QC OR SC Device Increase Ability to Walk Yes: 15MIN Increase Ability to Stand Yes: 30MIN Improve Ability For Household Care Yes: 30MIN Increase Tinnetti Score Yes: 22-24 Decrease TUG Time Yes: 10-12 W/QC,SC Decrease Subjective C/O Pain Yes: 0-2/10 W/ABOVE ACTIVITIES Patient to be Ind w/ Advanced HEP Yes Outpatient Therapy Plan of Care Treatment Plan May Include Therapeutic Exercise Including Home Yes Exercise Program Manual Therapy Techniques Yes Neuromuscular Re-education Yes Therapeutic Activities to Return to Yes Previous Functional/Work Level Gait Training Yes ADL/Self Care Education Yes Dry Needling Yes Thermal Modalities Yes Electrical Stimulation Yes Ultrasound/Phonophoresis Yes Orthotics/Bracing/Splinting Yes Eval/Re-Eval Yes Frequency Times per week 2-3 Duration Number of Weeks 10-12 Addendums This patient is a candidate for social No or vocational rehab? Patient/Guardian verbally acknowledges Yes understanding of treatment program and consents to further treatment? Patient/Guardian verbally acknowledges Yes understanding of diagnosis, prognosis and goals for treatment? Eval Complexity PT Charges 43443 - High Complexity Shoulder/Elbow Eval Shoulder Objective Measurements Elbow Objective Measurements PHYSICIAN CERTIFICATION: I certify the specified therapy services for Sharon Crump are required, authorized, and reviewed every 30 days.
--- NOTE | 2023-09-03 16:05 | HMH.RHREAS ---
Rehab Reassessment Rehab OP Re-assessment Start: 08/07/23 11:55 Freq: Status: Active Protocol: Document 09/03/23 14:57 PAUL (Rec: 09/03/23 16:05 PAUL [id number]) E-signed By Juan Casper, PT Tinetti Sitting Balance Sitting Balance Steady, safe Arising from Chair Ability to Arise Able, uses arms to help Attempts to Arise Arises on 1st attempt Standing Balance Immediate Standing Balance Steady with support Standing Balance Steady, wide stance Nudged Response Steady Turning Step Pattern Turning 360 Degrees Continuous steps Stability Turning 360 Degrees Steady Sitting Down Sitting Down Uses arms or unsteady Gait and Step Initiation of Gait No hesitancy Right Foot Step Length Does pass stance foot Right Foot Step Height Completely clears floor Left Foot Step Length Does pass stance foot Left Foot Step Height Completely clears floor Step Description Step Symmetry Step length appears equal Step Continuity Steps appear continuous Gait Description Path Description Straight Trunk Description No sway but posturing Walking Stance Heels apart Scoring and Interpretation Tinetti Composite Score (points) 21 Interpretation of Scores At risk for falls (19-24) Rehab Re-assessment Subjective Subjective Pt reports no significant changes in left LE strength since I eval, 'but I do feel like I'm getting around the house a bit better.' Objective Objective Notes MMT: LEFT HIP FLX 4-/5, LEFT HIP ADD 4-4+/5, L HIP ABD 4/5, L DF 4-/5, L KNEE EXT 4-4+/5, L KNEE FLX 4-4+/5 AROM: LEFT ANKLE DF 0-2 TINETTI 21 VS 20 ON IEVAL Assessment Progress Assessment Progressing as Expected Assessment Notes improved ROM and strength Patient goals met STG'S 10/05 Goals Not Met STG'S 10/05, LTG'S 04/07 Plan Plan Pt continue w/skilled P.T. to make further improvements in strength, balance, and gait to allow for optimal function Frequency of Therapy 1-2x/wk Duration of therapy 10-12wks Time and Billing Re-Eval Time 11 Re-Eval Billing Units 0 PHYSICIAN CERTIFICATION: I certify the specified therapy services for Sharon Crump are required, authorized, and reviewed every 30 days.
--- NOTE | 2023-10-13 16:07 | HMH.RHREAS ---
Rehab Reassessment Rehab OP Re-assessment Start: 08/07/23 11:55 Freq: Status: Active Protocol: Document 10/13/23 15:52 MICHELLEOTTO (Rec: 10/13/23 16:07 PAUL [id number]) E-signed By Juan Casper, PT Tinetti Sitting Balance Sitting Balance Steady, safe Arising from Chair Ability to Arise Able, uses arms to help Attempts to Arise Arises on 1st attempt Standing Balance Immediate Standing Balance Steady with support Standing Balance Steady, wide stance Nudged Response Staggers, catches self Standing with Eyes Closed Unsteady Turning Step Pattern Turning 360 Degrees Continuous steps Stability Turning 360 Degrees Steady Sitting Down Sitting Down Safe, steady Gait and Step Initiation of Gait No hesitancy Right Foot Step Length Does pass stance foot Right Foot Step Height Completely clears floor Left Foot Step Length Does pass stance foot Left Foot Step Height Does not clear floor Step Description Step Symmetry Step length appears equal Step Continuity Steps appear continuous Gait Description Path Description Mild/moderate deviation Trunk Description No sway Scoring and Interpretation Tinetti Composite Score (points) 20 Interpretation of Scores At risk for falls (19-24) Rehab Re-assessment Subjective Subjective Pt reports improved household activity endurance since last reassess, able to stand/walk for ~30min. Pt reports left LE 'may not be a whole better since we checked last time.' Objective Objective Notes MMT: LEFT HIP FLX 4/5, LEFT HIP ADD 4-4+/5, L HIP ABD 4--4 /5, L DF 4-/5, L EVR. 4--4/5 L KNEE EXT 4-4+/5, L KNEE FLX 4 -4+/5 AROM: LEFT ANKLE DF 0-3 TINETTI 20 VS 20 ON IEVAL Assessment Progress Assessment Progressing as Expected Assessment Notes SLIGHT IMPROVEMENT IN STRENGTH Patient goals met STG'S 12/05 LTG'S 09/05 Goals Not Met STG'S 09/04, LTG'S 01/05 Plan Plan Pt continue w/skilled P.T. to make further improvements in strength, balance, and gait to allow for optimal function. Will also explore potential AFO options for LLE if left ankle strength plateaus. Frequency of Therapy 2-3X/WK Duration of therapy 4-6WKS Time and Billing Re-Eval Time 11 Re-Eval Billing Units 0 PHYSICIAN CERTIFICATION: I certify the specified therapy services for Sharongrey Crump are required, authorized, and reviewed every 30 days.
== END 2023-11-05 17:00 | disposition home or self-care (01) ==
LOC: PT 16:00
PROVIDERS: PCP Internal Medicine Adolescent Medicine; Visit Provider Internal Medicine Adolescent Medicine
DX: M62.81 Muscle weakness (generalized) (principal); M19.049 Primary osteoarthritis, unspecified hand
CPT/HCPCS: 97110; 97112; 97140; 97163; 97164; 97530; 97760

== ENCOUNTER 2024-01-21 08:16 | Outpatient (CLI) | payer MEDICARE, SELFPAY ==
[2024-01-21 08:45] LABS: Basophils # 0.1 K/mm3 (0-0.2); Basophils % 0.9 % (0.1-2.0); Eosinophils # 0.2 K/mm3 (0.0-0.4); Eosinophils % 2.3 % (0.1-12.0); Hematocrit 38.5 % (37.0-47.0); Hemoglobin 14.1 g/dL (12.2-16.2); Lymphocytes # 1.8 K/mm3 (0.7-4.5); Lymphocytes % 25.7 % (10-50); Mean Corpuscular HGB Conc 36.6 g/dL (31.8-35.4); Mean Corpuscular Hemoglobin 34.1 pg (27.0-31.2); Mean Corpuscular Volume 93.2 fl (81-99); Monocytes # 0.4 K/mm3 (0.1-1.0); Monocytes % 5.6 % (1.7-9.3); Neutrophils # 4.6 K/mm3 (1.8-7.8); Neutrophils % 65.5 % (37.0-80.0); Platelet Count 203 K/mm3 (142-424); Red Blood Count 4.13 M/mm3 (4.20-5.40); Red Cell Distribution Width 14.1 % (11.5-17.5); White Blood Count 7.1 K/mm3 (4.8-10.8)
[2024-01-21 09:30] LABS: Alanine Aminotransferase 28 U/L (12-78); Albumin Level 4.3 g/dl (3.5-5.0); Albumin/Globulin Ratio 1.5 (1.1-1.8); Alkaline Phosphatase 110 U/L (38-126); Anion Gap 13.8 mEq/L (5-15); Aspartate Amino Transferase 34 U/L (14-36); Bilirubin,Total 0.8 mg/dl (0.2-1.3); Blood Urea Nitrogen 16 mg/dl (7-17); Carbon Dioxide 26 mmol/L (22.0-30.0); Chloride 107 mmol/L (98-107); Cholesterol 269 mg/dl (140-200); Estimated Glomerular Filt Rate 83 ml/min (>60); GFR (African American) 100 ML/MIN (>60); Globulin 2.9 g/dL (1.3-3.2); Glucose 229 mg/dl (74-100); HDL Cholesterol 54 mg/dl (40-60); Potassium 3.8 mmoL/L (3.5-5.1); Sodium 143 mmol/L (136-145); Total Protein,Serum 7.2 g/dl (6.3-8.2); Triglycerides 191 mg/dl (30-150); Uric Acid 7.1 mg/dl (2.5-6.2); VLDL Cholesterol 38 mg/dL (0-40)
== END 2024-01-21 23:59 | disposition home or self-care (01) ==
LOC: LAB 08:17
PROVIDERS: PCP Internal Medicine Adolescent Medicine; Visit Provider Internal Medicine Adolescent Medicine
DX: E11.40 Type 2 diabetes mellitus with diabetic neuropathy, unspecified (principal); M19.90 Unspecified osteoarthritis, unspecified site; E78.01 Familial hypercholesterolemia; I69.354 Hemiplegia and hemiparesis following cerebral infarction affecting left non-dominant side
CPT/HCPCS: 36415; 80053; 80061; 83036; 84550; 85025

== ENCOUNTER 2024-03-12 09:35 | Outpatient (CLI) | payer MEDICARE, SELFPAY ==
[2024-03-12 09:56] LABS: Basophils # 0.1 K/mm3 (0-0.2); Eosinophils # 0.2 K/mm3 (0.0-0.4); Eosinophils % 1.5 % (0.1-12.0); Hematocrit 42.9 % (37.0-47.0); Hemoglobin 13.6 g/dL (12.2-16.2); Lymphocytes # 2.5 K/mm3 (0.7-4.5); Lymphocytes % 24.6 % (10-50); Mean Corpuscular HGB Conc 31.7 g/dL (31.8-35.4); Mean Corpuscular Hemoglobin 30.4 pg (27.0-31.2); Mean Corpuscular Volume 95.7 fl (81-99); Mean Platelet Volume 9.3 fl (7.4-10.4); Monocytes # 0.6 K/mm3 (0.1-1.0); Neutrophils # 6.7 K/mm3 (1.8-7.8); Neutrophils % 66.8 % (37.0-80.0); Platelet Count 208 K/mm3 (142-424); Red Blood Count 4.48 M/mm3 (4.20-5.40); Red Cell Distribution Width 13.4 % (11.5-17.5); White Blood Count 10.1 K/mm3 (4.8-10.8)
[2024-03-12 10:25] LABS: Alanine Aminotransferase 32 U/L (12-78); Albumin Level 4.2 g/dl (3.5-5.0); Albumin/Globulin Ratio 1.4 (1.1-1.8); Alkaline Phosphatase 100 U/L (38-126); Anion Gap 10.1 mEq/L (5-15); Aspartate Amino Transferase 35 U/L (14-36); Bilirubin,Total 0.5 mg/dl (0.2-1.3); Blood Urea Nitrogen 16 mg/dl (7-17); Calcium 9.3 mg/dl (8.4-10.2); Carbon Dioxide 26 mmol/L (22.0-30.0); Chloride 107 mmol/L (98-107); Chol/HDL Ratio 4.9 (1-3.5); Cholesterol 266 mg/dl (140-200); Estimated Glomerular Filt Rate 83 ml/min (>60); GFR (African American) 100 ML/MIN (>60); Glucose 193 mg/dl (74-100); HDL Cholesterol 54 mg/dl (40-60); Potassium 4.1 mmoL/L (3.5-5.1); Sodium 139 mmol/L (136-145); Total Protein,Serum 7.2 g/dl (6.3-8.2); Triglycerides 193 mg/dl (30-150); VLDL Cholesterol 39 mg/dL (0-40)
[2024-03-12 10:31] LABS: Hemoglobin A1C 8.2 % (4.0-6.0)
[2024-03-12 10:36] LABS: Direct LDL Cholesterol 174.88 mg/dL (100-129)
== END 2024-03-12 23:59 | disposition home or self-care (01) ==
PROVIDERS: PCP Internal Medicine Adolescent Medicine; Visit Provider Internal Medicine Adolescent Medicine
DX: E11.40 Type 2 diabetes mellitus with diabetic neuropathy, unspecified (principal); E78.01 Familial hypercholesterolemia; Z78.9 Other specified health status
CPT/HCPCS: 36415; 80053; 80061; 83036; 85025

== ENCOUNTER 2024-07-02 09:30 | Outpatient (CLI) | payer MEDICARE, SELFPAY ==
[2024-07-02 11:13] LABS: Alanine Aminotransferase 25 U/L (12-78); Albumin Level 4.8 g/dl (3.5-5.0); Albumin/Globulin Ratio 1.9 (1.1-1.8); Alkaline Phosphatase 108 U/L (38-126); Aspartate Amino Transferase 37 U/L (14-36); Bilirubin,Total 0.7 mg/dl (0.2-1.3); Blood Urea Nitrogen 17 mg/dl (7-17); Calcium 10.1 mg/dl (8.4-10.2); Carbon Dioxide 29 mmol/L (22.0-30.0); Chloride 100 mmol/L (98-107); Chol/HDL Ratio 4.8 (1-3.5); Cholesterol 251 mg/dl (140-200); Estimated Glomerular Filt Rate 71 ml/min (>60); GFR (African American) 86 ML/MIN (>60); Globulin 2.5 g/dL (1.3-3.2); Glucose 170 mg/dl (74-100); HDL Cholesterol 52 mg/dl (40-60); Sodium 140 mmol/L (136-145); Total Protein,Serum 7.3 g/dl (6.3-8.2); Triglycerides 194 mg/dl (30-150); VLDL Cholesterol 39 mg/dL (0-40)
[2024-07-02 11:14] LABS: Hemoglobin A1C 7.1 % (4.0-6.0)
[2024-07-02 11:24] LABS: Direct LDL Cholesterol 167.03 mg/dL (100-129)
== END 2024-07-02 23:59 | disposition home or self-care (01) ==
LOC: LAB 09:31
PROVIDERS: PCP Internal Medicine Adolescent Medicine; Visit Provider Internal Medicine Adolescent Medicine
DX: E11.40 Type 2 diabetes mellitus with diabetic neuropathy, unspecified (principal); E78.01 Familial hypercholesterolemia
CPT/HCPCS: 36415; 80053; 80061; 83036

== ENCOUNTER 2024-10-29 08:50 | Outpatient (CLI) | payer MEDICARE, SELFPAY ==
[2024-10-29 09:45] LABS: Albumin Level 4.5 g/dl (3.5-5.0); Chloride 109 mmol/L (98-107)
[2024-10-29 09:46] LABS: Potassium 3.7 mmoL/L (3.5-5.1); Sodium 142 mmol/L (136-145)
[2024-10-29 09:48] LABS: Alanine Aminotransferase 19 U/L (12-78); Anion Gap 9.7 mEq/L (5-15); Aspartate Amino Transferase 28 U/L (14-36); Blood Urea Nitrogen 13 mg/dl (7-17); Carbon Dioxide 27 mmol/L (22.0-30.0); Estimated Glomerular Filt Rate 71 ml/min (>60); GFR (African American) 86 ML/MIN (>60)
[2024-10-29 09:49] LABS: Alkaline Phosphatase 100 U/L (38-126); Bilirubin,Total 0.7 mg/dl (0.2-1.3); Calcium 9.6 mg/dl (8.4-10.2); Chol/HDL Ratio 4.2 (1-3.5); Cholesterol 231 mg/dl (140-200); Glucose 163 mg/dl (74-100); HDL Cholesterol 55 mg/dl (40-60); Triglycerides 192 mg/dl (30-150); VLDL Cholesterol 38 mg/dL (0-40)
[2024-10-29 09:50] LABS: Albumin/Globulin Ratio 1.9 (1.1-1.8); Globulin 2.4 g/dL (1.3-3.2); Total Protein,Serum 6.9 g/dl (6.3-8.2)
[2024-10-29 10:00] LABS: Direct LDL Cholesterol 134.67 mg/dL (100-129)
[2024-10-29 11:35] LABS: Hemoglobin A1C 6.5 % (4.0-6.0)
== END 2024-10-29 23:59 | disposition home or self-care (01) ==
LOC: LAB 08:51
PROVIDERS: PCP Internal Medicine Adolescent Medicine; Visit Provider Internal Medicine Adolescent Medicine
DX: E11.40 Type 2 diabetes mellitus with diabetic neuropathy, unspecified (principal); Z79.4 Long term (current) use of insulin
CPT/HCPCS: 36415; 80053; 80061; 83036

== ENCOUNTER 2025-03-04 09:06 | Outpatient (CLI) | payer MEDICARE, SELFPAY ==
--- OUTSIDE RECORDS SUMMARY | 2024-12-13 12:45 | XMS_ITS ---
Author Organization [facility] D [facility] Address [address] [place] [address] Care Team Providers Care Paver Layer Name Role Phone Juan Zavala Primary Care Provider [phone] Juan Zavala Unavailable Unavailable REASON FOR VISIT 4 wk FU Encounters Encounter Location Date Provider Diagnosis [place] [address] [address] 12/13/2024 Juan Zavala Plan Of Treatment Next Appt Details Provider Name:Enedelia Kirk ce, 03/04/2025 09:30:00 AM, [address], [address], [place], [place], [address], Progress Notes * Sharon DE LOS SANTOSDOB:1955 (69 yo F)Acc No.[id number]:12/13/2024 Progress Notes Patient: Sharon CAT Provider: Kyler Zavala MD :1955 A ge:69 Y S ex:Female Date:12/13/2024 Address:[address] [id number] Subjective: * Chief Complaints: * 1 . 4 wk FU. * Medical History: Objective: * Vitals: Assessment: Plan: * Treatment: * * Electronic signature of Wojciech Zavala MD FAAP on 03/04/2025 at 09:10 AM EDT Sign off status: Pending * Provider: Kyler Zavala MD Date: 0 12/13/2024 Generated for Jose frye/Olegario/Lorna on: 0 03/04/2025 09:10 AM EDT
--- OUTSIDE RECORDS SUMMARY | 2025-01-19 07:30 | XMS_ITS ---
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 Gr. 1.025 Ketone neg Bili neg Glucose neg REASON FOR VISIT re check urine, med ck Medications Medication SIG (Take, Route, Frequency, Duration) Notes Start Date End Date Status [facility] NA use 5 times daily; Duration: 100 days Active Rybelsus 14 MG 1 tab(s) orally once a day; Duration: 30 days 07/05/2024 Active Losartan Potassium 100 MG TAKE 1 TABLET EVERY DAY; Duration: 90 Active Dicyclomine HCl 10 MG 1 cap Orally twice a day; Duration: 30 days As needed with meals 11/12/2024 Active ACCU CHECK GLUCOMETER USE DIRECTED FO R FOUR TIMES A DAY TESTING; Duration: 90 DAYS 12/22/2023 Active Aspirin 81 MG 1 tab(s) chewed once a day; Duration: 30 day(s) Active ACCU CHECK SOFT CLICK LANCETS USE DIRECTED FOR TESTING FOUR TIMES A DAY; Duration: 30 DAYS 12/22/2023 Active ACCU CHECK TEST STRIPS USE DIRECTED F OR TESTING FOUR TIMES A DAY; Duration: 30 DAYS 12/22/2023 Active Baclofen 10 MG 1 tab(s) orally once a day; Duration: 90 days prn Active Alive Womens 50+ Complete MV - as directed Orally Active Anti-Diarrheal 2 MG 1 capsule as needed Orally daily Active Droplet [facility] 31G X 5 MM USE DIRECTED WITH INSULIN FIVE TIMES DAILY; Duration: 90 Active DropSafe Alcohol Prep 70 % USE DIRECT ED WITH INJECTIONS FIVE TIMES PER DAY; Duration: 90 Active Social History Tobacco Use: Social History Observation Description Date Details (start date - stop date) Former Smoker NA - NA Smoking: Question Answer Notes Are you a: former smoker How long has it been since you last smoked? > 10 years Vital Signs Temperature 98.1 degrees Fahrenheit 01/20/20 25 Blood pressure systolic 160 mm Hg 01/20/20 25 Blood pressure diastolic 80 mm Hg 025 Heart Rate 80 /min 01/19/2025 Height 63 in 01/19/2025 Weight 177.2 lbs 01/19/2025 BMI 31.39 kg/m2 01/19/2025 Encounters Encounter Location Date Provider Diagnosis [facility] [address] [facility] [address] [place] [address] 01/19/2025 Enedelia Aguilar Recurrent UTI N39.0 ; Essential hypertension I10 ; Type 2 diabetes mellitus with diabetic neuropathy, unspecified E11.40 and Hemiparesis affecting left side as late effect of cerebrovascular accident I69.354 Assessments Encounter Date Diagnosis (ICD Code) Assessment Notes Treatment Notes Treatment Clinical Notes Section Notes 01/19/2025 Recurrent UTI (ICD-10 - N39.0) Normal UA. Symptoms resolved with Augmentin. No culture indicated. Follow-up PRN. 01/19/2025 Essential hypertension (ICD-10 - I10) Attribute elevation to not taking Losartan today and did go down after sitting. One isolated elevated read. Follow-up at next medication check in 3 months or sooner if needed. 01/19/2025 Type 2 diabetes mellitus with diabetic neuropathy, unspecified (ICD-10 - E11.40) HA1C improved on current regimen per October 2024 labs. Tolerating medication well without n/v. Will re-check HA1C at next medication check in 3 months or sooner if needed. 01/19/2025 Hemiparesis affecting left side as late effect of cerebrovascular accident (ICD-10 - I69.354) Continue ASA. Plan Of Treatment Treatment Notes Assessment Notes Recurrent UTI Normal UA. Symptoms resolved with Augmentin. No culture indicated. Follow-up PRN. Essential hypertension Attribute elevati on to not taking Losartan today and did go down after sitting. One isolated elevated read. Follow-up at next medication check in 3 months or sooner if needed. Type 2 diabetes mellitus wit h diabetic neuropathy, unspecified HA1C improved on current regimen per October 2024 labs. Tolerating medication well without n/v. Will re-check HA1C at next medication check in 3 months or sooner if needed. Hemiparesis affecting left s ruthann as late effect of cerebrovascular accident Continue ASA. Next Appt Details Follow Up: 3 Months or soone r if needed., Reason: Provider Name:Enedelia Kirk ce, 03/04/2025 09:30:00 AM, [address] [facility], [address], [place], [address], Progress Notes * Tripp DE LOS SANTOSgreyDOB:1955 (69 yo F)Acc No.[id number]:01/19/2025 Progress Notes Patient: Sharon CAT Provider: MARIA G Garcia :1955 A ge:69 Y S ex:Female Date:01/19/2025 Address:[facility] [address], [place], [id number] Pcp:Juan Zavala Subjective: * Chief Complaints: * 1 . Re check urine, med ck. * HPI: g en: Patient presents for routine urine re-check and medication check. She has finished the Augmentin and denies any dysuria, deangelo hematuria, abd pain, n/v/d. She is taking her medications without issues. BP elevated on initial check today, improved after sitting and reports not taking her Losartan yet today. J ust had routine labs 2 months ago. * ROS: A LLERGY: no R unny nose. R ESPIRATORY: no S hortness of breath. n o C ough. ? C ARDIOLOGY: no D izziness. n o C hest pain. n o P alpitations. n o L eg edema. n o S hortness of breath. C ONSTITUTIONAL: no L oss of appetite. n o F ever. D ERMATOLOGY: no R jocelyn. E NT: no C ough. n o S ore throat. G ASTROENTEROLOGY: no N ausea. n o V omiting. n o A bdominal pain. n o D iarrhea. n o C onstipation. n o B lood in stool. U ROLOGY: Dysuria n o. n o B lood in urine. * Medical History: D iabetes, Arthritis, HTN, Obesity, Colonoscopy 10/2020, Dr Randall, 1 TA and 1 hyperplastic polyp, HLD - intolerant to statins, CVA April 2022 with residual left-sided hemiparesis requiring admission to [place], Stroke. * Surgical History: B ilateral trigger thumb release , Right knee surgery 1958, Cholecystectomy , Appendectomy , Tubal ligation , Gastric sleeve 05/17/2018. * Hospitalization/Major Diagno stic Procedure: T ubal ligation , Appendectomy , Gastric Sleeve 05/17/2018, Stroke, COVID 19. [facility] 03/2022. * Family History: F ather: 43 yrs, huntingtons disease. M other: , emphysema, CVA. P aternal Grand Father: , family history unknown . P aternal Grand Mother: , dementia. M aternal Grand Father: . M aternal Grand Mother: 94 yrs, CVA. P aternal uncle: . P aternal aunt: alive, huntingtons. M aternal uncle: , cancer. Maternal aunt: . S iblings: alive, brother - cancer, sister- CVAyoungest sister-TIA. C hildren: alive, son- diabetes. 1 brother(s) , 2 sister(s) . 2 son(s) , 1 daughter(s) - healthy. . Hx of Huntingtons. * Social History: S moking A re you a: f ormer smoker, H ow long has it been since you last smoked??> 10 years. R ecreational drug use: no. Exercise: yes. Home smoke detector use: yes. Caffeine: yes, 2 cups of decaf coffee daily. Living Will: No. Alcohol: no. Sexually active: yes. Travel outside : no. Occupation: retired from [employer], [employer]. * Medications: T aking Anti-Diarrheal 2 MG Capsule 1 capsule as needed Orally daily , Taking Alive Womens 50+ Complete MV - Tablet as directed Orally , Taking Aspirin 81 MG Tablet Chewable 1 tab(s) chewed once a day , Taking ACCU CHECK GLUCOMETER USE DIRECTED FOR FOUR TIMES A DAY TESTING , Taking ACCU CHECK TEST STRIPS USE DIRECTED FOR TESTING FOUR TIMES A DAY , Taking ACCU CHECK SOFT CLICK LANCETS USE DIRECTED FOR TESTING FOUR TIMES A DAY , Taking Baclofen 10 MG Tablet 1 tab(s) orally once a day , Notes to Pharmacist: prn, Taking Rybelsus 14 MG Tablet 1 tab(s) orally once a day , Taking [facility] NA NA use 5 times daily , Taking Losartan Potassium 100 MG Tablet TAKE 1 TABLET EVERY DAY , Taking Dicyclomine HCl 10 MG Capsule 1 cap Orally twice a day As needed with meals, Taking Droplet [facility] 31G X 5 MM Miscellaneous USE DIRECTED WITH INSULIN FIVE TIMES DAILY , Taking DropSafe Alcohol Prep 70 % Pad USE DIRECTED WITH INJECTIONS FIVE TIMES PER DAY , Discontinued Venlafaxine HCl 37.5 MG Tablet 1 tablet with food Orally Once a day , Discontinued Nitrofurantoin Macrocrystal 100 MG Capsule 1 capsule Orally twice a day , Discontinued Amoxicillin-Pot Clavulanate 875-125 MG Tablet 1 tablet Orally every 12 hrs , Medication List reviewed and reconciled with the patient * Allergies: S ULFA - Onset Date 08/02/2019. Objective: * Vitals: N urse: jl, Pain: 4, Temp: 98.1, RR: 18, HR: 80, BP: 160/80, Ht: 63, Wt: 177.2, BMI:31.39, Repeat BP: 148/80. * Examination: G eneral Examination: General P leasant and Cooperative, NAD on RA,. Oral cavity: M oist membranes. Chest: n ormal shape and expansion. Heart: R RR, No m/r/g, No edema,. Lungs: L ungs clear, No wheezes, crackles or rhonchi, Good air movement,. Abdomen: S oft, non-tender, No organomegaly or peritoneal signs.. Neurologic Exam: n o focal signs neurological deficits.? Skin: w ithout acute rashes. Back: n ormal,. Psych N ormal Mood/Affect. Assessment: * Assessment: 1. R ecurrent UTI - N39.0 (Primary) 2 . E ssential hypertension - I10 ? 3 . T ype 2 diabetes mellitus with diabetic neuropathy, unspecified - E11.40 ? 4 . H emiparesis affecting left side as late effect of cerebrovascular accident - I69.354 Plan: * Treatment: Value Reference Range C olor/Clarity yellow * L euk neg * N itrite neg * U robili 0.2 * P rotein neg * p H 6.5 * B lood neg * S p. Gr. 1.025 * K etone neg * B abelino neg * G lucose neg * Fern Pinzon 01/19/2025 11: 55:21 AM EDT >Enedelia Aguilar 01/19/2025 11:57:37 AM EDT > Notes: Normal UA. Symptoms resolved with Augmentin. No culture indicated. Follow-up PRN.??2.?Essential hypertension? Notes: Attribute elevation to not taking Losartan today and did go down after sitting. One isolatedelevated read. Follow-up at next medication check in 3 months or sooner if needed. ??3.?Type 2 diabetes mellitus with diabetic neuropathy, unspecified? Notes: HA1C improved on current regimen per October 2024 labs. Tolerating medication well without n/v. Will re-check HA1C at next medication check in 3 months or sooner if needed. ??4.?Hemiparesis affecting left side as late effect of cerebrovascular accident? Notes: Continue ASA. ?? * Procedure Codes: 8 1002 URINALYSIS, Modifiers: QW * Follow Up: 3 Months or sooner if needed. * * Sign off status: Completed true * Provider: MARIA G Garcia Date: 0 01/19/2025 Generated for Printi ng/Olegario/eTransmitting on: 0 03/04/2025 09:10 AM EDT History and Physical Notes * HPI (History of Present Illness) Category Sub-Category Detail Notes Category Not es gen Patient present s for routine urine re-check and medication check. She has finished the Augmentin and denies any dysuria, deangelo hematuria, abd pain, n/v/d. She is taking her medications without issues. BP elevated on initial check today, improved after sitting and reports not taking her Losartan yet today. Just had routine labs 2 months ago. Examination Category Sub-Category Detail Notes Category Not es General Examination Heart: RRR, No m/r/g, No juanita ma, Lungs: Lungs clear, No whee zes, crackles or rhonchi, Good air movement, Abdomen: Soft, non-tender, No organomegaly or peritoneal signs. Skin: without acute rashes Neurologic Exam: no focal signs neuro logical deficits Oral cavity: Moist membranes Back: normal, Chest: normal shape and exp ansion General Pleasant and Coopera tive, NAD on RA, Psych Normal Mood/Affect
--- OUTSIDE RECORDS SUMMARY | 2025-03-01 04:31 | XMS_ITS ---
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 Name Role Phone Juan Zavala Primary Care Provider Juan Zavala Unavailable Unavailable REASON FOR VISIT Lab Order Encounters Encounter Location Date Provider Diagnosis [facility] [address] [place], [place] [address] 03/01/2025 Juan Zavala Type 2 diabetes lexie itus with diabetic neuropathy, unspecified E11.40 ; Familial hypercholesterolemia E78.01 and Neuropathy G62.9 Assessments Encounter Date Diagnosis (ICD Code) Assessment Notes Treatment Notes Treatment Clinical Notes Section Notes 03/01/2025 Type 2 diabetes lexie itus with diabetic neuropathy, unspecified (ICD-10 - E11.40) 03/01/2025 Familial hypercholesterolemia (ICD-10 - E78.01) 03/01/2025 Neuropathy (ICD-10 - G62.9) Plan Of Treatment Pending Test Test Name Order Date M-Complete Blood Count Auto Diff 025 M-Urine Microscopic 03/01/2025 M-Comprehensive Metabolic Panel 03/01/20 25 M-Hemoglobin A1C 03/01/2025 M-Magnesium 03/01/2025 M-Lipid Panel 03/01/2025 M-Thyroid Panel 03/01/2025 M-Vitamin B12 03/01/2025 M-Vitamin D 25 Hydroxy 03/01/2025 M-Microalb/Creat Ratio, Randm Ur 025 Next Appt Details Provider Name:Enedelia Kirk ce, 03/04/2025 09:30:00 AM, [address], [address], [place], [address], Progress Notes * Sharon DE LOS SANTOSDOB:1955 (69 yo F)Acc No.[id number]:03/01/2025 Patient: Sharon CAT :1955 A ge:69 Y S ex:Female Address:[facility] [address] [place], [address] Subjective: * Chief Complaints: * L ab Order * Medical History: * Surgical History: * Hospitalization/Major Diagno stic Procedure: * Medications: Objective: * Vitals: * Physical Examination: Assessment: * Assessment: 1. T ype 2 diabetes mellitus with diabetic neuropathy, unspecified - E11.40 (Primary) ? 2 . F amilial hypercholesterolemia - E78.01 3 . N europathy - G62.9? Plan: * Treatment: 2. F amilial hypercholesterolemia L AB: M-Complete Blood Count Auto Diff L AB: M-Urine Microscopic L AB: M-Comprehensive Metabolic Panel L AB: M-Hemoglobin A1C L AB: M-Magnesium L AB: M-Lipid Panel L AB: M-Thyroid Panel L AB: M-Vitamin B12 L AB: M-Vitamin D 25 Hydroxy L AB: M-Microalb/Creat Ratio, Rand Ur 3. N europathy L AB: M-Complete Blood Count Auto Diff L AB: M-Urine Microscopic L AB: M-Comprehensive Metabolic Panel L AB: M-Hemoglobin A1C L AB: M-Magnesium L AB: M-Lipid Panel L AB: M-Thyroid Panel L AB: M-Vitamin B12 L AB: M-Vitamin D 25 Hydroxy L AB: M-Microalb/Creat Ratio, [facility] Ur * Procedure Codes: * true * Date: Generated for Printi ng/Faxing/eTransmitting on: 0 03/04/2025 09:10 AM EDT
--- OUTSIDE RECORDS SUMMARY | 2025-03-04 09:10 | XMS_ITS | Encounter Summary ---
Author Organization [employer] ([place], [place], [place], [place]) Address [address] [place] [address] Care Team Providers Care Monitoring Engineer Name Role Phone Juan Zavala MD Primary Care Provider + [phone] Reason for Visit * Reason Comments Medication Refill Encounter Details Date Type Department Care Team (Late st Contact Info) Description 05/01/2023 Refill [facility] Neurology - [address] [facility] [address] [address] Carlitos Amaya MD [address] [place] [id number] Social History Tobacco Use Types Packs/Day Years Used Date Smoking Tobacco: Never Smokeless Tobacco: Never Alcohol Use Standard Drinks/Week Comments Never 0 (1 standard drink = 0.6 oz pur e alcohol) PRAPARE - Transportation Answer Date Re corded In the past 12 months, has l ack of transportation kept you from medical appointments or from getting medications? No 04/28/2022 Lack of Transportation (Non-Medical) Not on file 04/28/2022 Comments Unknown Sex and Gender Information Value Date Recorded Sex Assigned at Not on file Legal Sex Female 4:22 PM CDT Gender Identity Not on file Sexual Orientation Not on file documented as of this encounter Plan of Treatment Not on file documented as of this encounter Visit Diagnoses Not on filedocumented in this encounter Care Teams Monitoring Engineer Relationship Specialty Start Date End Date Juan Zavala MD [address] [place] [address] PCP - General Adolescent Medicine 04/26/22 documented as of this encounter
--- OUTSIDE RECORDS SUMMARY | 2025-03-04 09:10 | XMS_ITS | Clinical Summary ---
Author Organization [employer] ([place], [place], [place], [place]) Address [address] [place] [address] Care Team Providers Care Retail Salesperson Name Role Phone Juan Zavala MD Primary Care Provider + [phone] Allergies Active Allergy Reactions Criticality Noted Date Comments Sulfa (Sulfonamide Antibiotics) Hives High 04/26/2022 Other reaction(s): Other Medications aspirin 81 MG chewable tablet Take 81 mg by mouth daily. Active insulin aspart U-100 (NovoLOG) 100 unit/mL (3 mL) InPn Inject 6 Units subcutaneously daily with dinner . Active losartan-hydro CHLOROthiazide (HYZAAR) 100-25 mg per tablet Take 0.5 tablets by mouth daily. Active insulin glargine (LANTUS, SEMGLEE) 100 unit/mL injection Inject 20 Units subcutaneously nightly Use as directed . 10 mL 2 Active heparin injection 5,000 units/mL Inject 1 mL (5,000 Units total) subcutaneously every 12 (twelve) hours. 1 mL 2 Active pantoprazole (PROTONIX) 40 MG tablet Take 1 tablet (40 mg total) by mouth daily. 30 tablet 2 Active omega-3 fatty acids (Fish Oil Concentrate) 1,000 mg Cap Take 1 g by mouth 2 (two) times daily. 60 capsule 2 Active amoxicillin-cl avulanate (AUGMENTIN) 500-125 mg per tablet Take 1 tablet by mouth 2 (two) times daily. 10 tablet 2 Active Additional Information Patient not taking.Reported on 06/03/2022 blood sugar diagnostic (Accu-Chek Deana Plus test strp) Strp Accu-Chek Deana Plus test strips Active glucometer (Accu-Chek [place]) Misc Accu-Chek [place] Acti ve insulin pen needles (BD ULTRA-FINE [place]) 4 mm x 32 G BD Ultra-Fine [place] Pen Needle 32 gauge x 5/32 Use once daily with Victoza Active multivitamin-C i-smbg-meihonc s 27-0.4 mg Tab one a day womens multivitamin Active alcohol swabs (Alcohol Prep Pads) PadM alcohol prep pads A ctive Invokana 300 mg tablet Take 1 tablet (300 mg total) by mouth daily. 3 Active DULoxetine (CYMBALTA) 30 MG capsule Take 1 capsule (30 mg total) by mouth daily. 3 Active escitalopram oxalate (LEXAPRO) 10 MG tablet Take 1 tablet (10 mg total) by mouth daily. 3 Active Active Problems Problem Noted Date Diagnosed Date Spastic hemiplegia of left d ominant side as late effect of cerebral infarction 08/24/2023 Acute CVA (cerebrovascular accident) 04/26/2022 Social History Tobacco Use Types Packs/Day Years [...] of Transportation (Non-Medical) Not on file 04/28/2022 Food Insecurity Answer Date Recorded Food run out past 12 months Not on file 06/29 Food did not last past 12 months Not on file 07/17/2023 Employment Answer Date Recorded Help finding and keeping a job Not on file 0 07/17/2023 Family and Community Support Answer Tejas e Recorded Help with Day to Day Activities Not on file 07/17/2023 Feeling Lonely or Isolated Not on file 07/17 Educational Attainment Answer Date Imtiaz rded Speak language other than Greek at home Not on file 07/17/2023 Want help with school or training Not on file 07/17/2023 Substance Use Answer Date Recorded Used prescription meds for non-medical reasons N ot on file 07/17/2023 Used illegal drugs past 12 months Not on file 07/17/2023 Comments Unknown Sex and Gender Information Value Date Recorded Sex Assigned at Not on file Legal Sex Female 4:22 PM CDT Gender Identity Not on file Sexual Orientation Not on file Last Filed Vital Signs Vital Sign Reading Time Taken Comments Blood Pressure 122/80 02/06/2023 1:40 PM EDT Pulse 102 02/06/2023 1:40 PM EDT Temperature 36.9 C (98.4 F) 05/01/2022 7:55 PM EDT Respiratory Rate 16 05/01/2022 2:15 PM EDT Oxygen Saturation 94% 02/06/2023 1:40 PM EDT Inhaled Oxygen Concentration - - Weight 89.7 kg (197 lb 12.8 oz) 02/06/2023 1:40 PM EDT Height 161.3 cm (5' 3.5 ) 02/06/2023 1:40 PM EDT Body Mass Index 34.49 02/06/2023 1:40 PM EDT Plan of Treatment Health Maintenance Due Date Last Done Comments CT Colonography 1955 Colonoscopy 1955 Colorectal Cancer Screening 1955 DXA SCAN 1955 FOBT/FIT 1955 Fit-DNA (Cologuard) 1955 Sigmoidoscopy 1955 Depression Screening (12+) 1965 Hepatitis C Screening 1971 Breast Cancer Screening 1993 Shingles Vaccine (Zoster) (1 of 2) 2003 Tobacco Cessation Counseling and Screening (12+) 02/07/2024 02/06/2023 COVID-19 VACCINE ( season) 2024 05/14/2021, 08/08/2020, 07/18/2020 Falls Risk Screening 06/29/2024 Influenza Vaccine (#1) 2025 2, 03/02/2020, 03/11/2019 DTAP/TDAP/TD VACCINES (2 - T d or Tdap) 01/02/2027 01/02/2017 Respiratory Syncytial Virus (RSV) Adult or (1 - 1-dose 75+ series) 2028 Pneumococcal 50+ years Completed 04/04/2022, 2016 Insurance [employer] Advance Directives For more information, please contact: [phone] * Full Code (Latest Code Status on File) Date Activated Date Inactivated Comments 04/26/2022 5:37 PM 05/01/2022 10:25 PM Care Teams Retail Salesperson Relationship Specialty Start Date End Date Juan Zavala MD [address] [place] [address] PCP - General Adolescent Medicine 04/26/22
--- OUTSIDE RECORDS SUMMARY | 2025-03-04 09:10 | XMS_ITS | Referral Summary ---
Author Organization [employer] ([place], [place], [place], [place]) Address [address] [place] [address] Care Team Providers Care Picker Box Operator Name Role Phone Juan Zavala MD Primary Care Provider + [phone] Allergies Active Allergy Reactions Criticality Noted Date [...] Use once daily with Victoza Active multivitamin-C f-fbhb-ybmdsjc s 27-0.4 mg Tab one a day [...] Date Imtiaz rded Speak language other than Icelandic at home Not on file 07/17/2023 Want [...] 02/06/2023 1:40 PM EDT Plan of Treatment Not on file Insurance [employer] Advance Directives For more information, please contact: [phone] * Full Code (Latest Code Status on File) Date Activated Date Inactivated Comments 04/26/2022 5:37 PM 05/01/2022 10:25 PM Care Teams Picker Box Operator Relationship Specialty Start Date End Date Juan Zavala MD [address] [place] [address] PCP - General Adolescent Medicine 04/26/22
--- OUTSIDE RECORDS SUMMARY | 2025-03-04 09:11 | XMS_ITS | Patient Health Record ---
Author Organization [facility] Address [address] [place] [address] Care Team Providers Care Extrusion Bender Name Role Phone Juan Zavala Primary Care Provider Juan Zavala Unavailable Unavailable Enedelia Hart Unavailable [phone] Enedelia Aguilar Unavailable [phone] Migration, Provider Unavailable Unavailable Allergies Allergen (clinical drug ingredient) Drug/Non Drug Allergy documented on EMR Reaction Allergy Type Onset Date Status SULFA (uncoded) Unknown Allergy 08/02/2019 Act xavier Results Component Value Reference Range Notes Urinalysis Reviewed date:01/19/2025 11:57:45 AM Interpretation: Performing Lab: Notes/Report: Color/Clarity yellow Leuk neg Nitrite neg Urobili 0.2 Protein neg pH 6.5 Blood neg Sp. Gr. 1.025 Ketone neg Bili neg Glucose neg M-Comprehensive Metabolic Pa sandhya Reviewed date:03/15/2024 01:08:39 PM Interpretation: Performing Lab: Notes/Report: NA 139 136-145 mmol/L K 4.1 3.5-5.1 mmoL/L CL 107 98-107 mmol/L CO2 26 22.0-30.0 mmol/L GAP 10.1 5-15 mEq/L BUN 16 7-17 mg/dl CREATT 0.70 0.52-1.04 mg/dl GFRAA 100 >60 ML/MIN EGFR 83 >60 ml/min GLU 193 74-100 mg/dl CA 9.3 8.4-10.2 mg/dl BILIT 0.5 0.2-1.3 mg/dl AST 35 14-36 U/L ALT 32 12-78 U/L TP 7.2 6.3-8.2 g/dl ALB 4.2 3.5-5.0 g/dl GLOB 3.0 1.3-3.2 g/dL AGRATIO 1.4 1.1-1.8 ALP 100 38-126 U/L M-Lipid Panel Reviewed date:03/15/2024 01:08:39 PM Interpretation: Performing Lab: Notes/Report: Patient Fasting? Y TRIG 193 30-150 mg/dl CHOL 266 140-200 mg/dl DLDL 174.88 100-129 mg/dL VLDL 39 0-40 mg/dL HDL 54 40-60 mg/dl CHLHDL 4.9 1-3.5 M-Complete Blood Count Auto Diff Reviewed date:03/15/2024 01:08:39 PM Interpretation: Performing Lab: Notes/Report: WBC 10.1 4.8-10.8 K/mm3 RBC 4.48 4.20-5.40 M/mm3 HGB 13.6 12.2-16.2 g/dL HCT 42.9 37.0-47.0 % MCV 95.7 81-99 fl MCH 30.4 27.0-31.2 pg MCHC 31.7 31.8-35.4 g/dL RDW 13.4 11.5-17.5 % PLT 208 142-424 K/mm3 MPV 9.3 7.4-10.4 fl NE% 66.8 37.0-80.0 % LY% 24.6 10-50 % MO% 6.0 1.7-9.3 % EO% 1.5 0.1-12.0 % BA% 1.0 0.1-2.0 % NE# 6.7 1.8-7.8 K/mm3 LY# 2.5 0.7-4.5 K/mm3 MO# 0.6 0.1-1.0 K/mm3 EO# 0.2 0.0-0.4 K/mm3 BA# 0.1 0-0.2 K/mm3 M-Comprehensive Metabolic Pa sandhya Reviewed date:07/05/2024 09:49:39 AM Interpretation: Performing Lab: Notes/Report: NA 140 136-145 mmol/L K 4.0 3.5-5.1 mmoL/L CL 100 98-107 mmol/L CO2 29 22.0-30.0 mmol/L GAP 15.0 5-15 mEq/L BUN 17 7-17 mg/dl CREATT 0.80 0.52-1.04 mg/dl GFRAA 86 >60 ML/MIN EGFR 71 >60 ml/min GLU 170 74-100 mg/dl CA 10.1 8.4-10.2 mg/dl BILIT 0.7 0.2-1.3 mg/dl AST 37 14-36 U/L ALT 25 12-78 U/L TP 7.3 6.3-8.2 g/dl ALB 4.8 3.5-5.0 g/dl GLOB 2.5 1.3-3.2 g/dL AGRATIO 1.9 1.1-1.8 ALP 108 38-126 U/L M-Hemoglobin A1C Reviewed date:03/15/2024 01:08:39 PM Interpretation: Performing Lab: Notes/Report: HGBA1C 8.2 4.0-6.0 % < 6% Non-Diabetic Level < 7% Controlled Diabetic Level > 8% Poorly Controlled Diabetic Level M-Hemoglobin A1C Reviewed date:07/05/2024 09:49:39 AM Interpretation: Performing Lab: Notes/Report: HGBA1C 7.1 4.0-6.0 % < 6% Non-Diabetic Level < 7% Controlled Diabetic Level > 8% Poorly Controlled Diabetic Level M-Lipid Panel Reviewed date:07/05/2024 09:49:39 AM Interpretation: Performing Lab: Notes/Report: Patient Fasting? Y TRIG 194 30-150 mg/dl CHOL 251 140-200 mg/dl DLDL 167.03 100-129 mg/dL VLDL 39 0-40 mg/dL HDL 52 40-60 mg/dl CHLHDL 4.8 1-3.5 M-Comprehensive Metabolic Pa sandhya Reviewed date:10/29/2024 02:07:26 PM Interpretation: Performing Lab: Notes/Report: NA 142 136-145 mmol/L K 3.7 3.5-5.1 mmoL/L CL 109 98-107 mmol/L CO2 27 22.0-30.0 mmol/L GAP 9.7 5-15 mEq/L BUN 13 7-17 mg/dl CREATT 0.80 0.52-1.04 mg/dl GFRAA 86 >60 ML/MIN EGFR 71 >60 ml/min GLU 163 74-100 mg/dl CA 9.6 8.4-10.2 mg/dl BILIT 0.7 0.2-1.3 mg/dl AST 28 14-36 U/L ALT 19 12-78 U/L TP 6.9 6.3-8.2 g/dl ALB 4.5 3.5-5.0 g/dl GLOB 2.4 1.3-3.2 g/dL AGRATIO 1.9 1.1-1.8 ALP 100 38-126 U/L M-Hemoglobin A1C Reviewed date:10/29/2024 02:07:26 PM Interpretation: Performing Lab: Notes/Report: HGBA1C 6.5 4.0-6.0 % < 6% Non-Diabetic Level < 7% Controlled Diabetic Level > 8% Poorly Controlled Diabetic Level M-Lipid Panel Reviewed date:10/29/2024 02:07:26 PM Interpretation: Performing Lab: Notes/Report: Patient Fasting? Y TRIG 192 30-150 mg/dl CHOL 231 140-200 mg/dl DLDL 134.67 100-129 mg/dL VLDL 38 0-40 mg/dL HDL 55 40-60 mg/dl CHLHDL 4.2 1-3.5 Urinalysis Reviewed date:12/13/2024 12:45:32 PM Interpretation: Performing Lab: Notes/Report: Color/Clarity brown Leuk large Nitrite positive Urobili 1.0 Protein >=300mg pH 6.0 Blood large Sp. Gr. 1.025 Ketone 15mg Bili moderate Glucose 100mg CULTURE, URINE, ROUTINE (395 ) Reviewed date:12/16/2024 11:27:01 AM Interpretation: Performing Lab:CB, [id number] [facility], [facility] [id number] Jarett [place] Notes/Report: NON-FASTING CULTURE, URINE, ROUTINE SEE NOTE CULTURE, URINE, ROUTINE Micro Number: [id number] Test Status: Final Specimen Source: Urine Specimen Quality: Adequate Result: Greater than 100,000 CFU/mL of Proteus mirabilis P.mirabilis INT FARSHAD AMOX/CLAVULANATE S <=2 AMP/SULBACTAM S <=2 CEFAZOLIN NR <=4 2 CEFEPIME S <=0.12 CEFTAZIDIME S <=1 CEFTRIAXONE S <=0.25 CIPROFLOXACIN S <=0.06 GENTAMICIN S <=1 LEVOFLOXACIN S <=0.12 MEROPENEM S <=0.25 NITROFURANTOIN R 64 PIP/TAZOBACTAM S <=4 TRIMETHOPRIM/SULFA S <=20 S = Susceptible I = Intermediate R = Resistant NS = Not susceptible SDD = Susceptible Dose Dependent * = Not Tested NR = Not Reported NN = See Therapy Comments THERAPY COMMENTS Note 1: For infections other than uncomplicated UTI caused by E. coli, K. pneumoniae or P. mirabilis: Cefazolin is resistant if FARSHAD > or = 8 mcg/mL. (Distinguishing susceptible versus intermediate for isolates with FARSHAD < or = 4 mcg/mL requires additional testing.) Note 2: For uncomplicated UTI caused by E. coli, K. pneumoniae or P. mirabilis: Cefazolin is susceptible if FARSHAD <32 mcg/mL and predicts susceptible to the oral agents cefaclor, cefdinir, cefpodoxime, cefprozil, cefuroxime, cephalexin and loracarbef. Reason For Referral Reason Deanna referral Diagnosis 1 Hammertoe of left fo ot (M20.42) Referral Organization [facility] Referring Provider First Name Juan Referring Provider Last Name Sally Referring Provider Speciality Internal M edicine Referred Organization [facility] Referred Address [address],[address], Referred Provider Specialty Podiatry - S urgical Chiropody Referral Priority Routine Medications Medication SIG (Take, Route, Frequency, Duration) Notes Start Date End Date Status Pen Sunspot NA use 5 times daily; Duration: 100 days Active Rybelsus 14 MG 1 tab(s) orally once a day; Duration: 30 days 07/05/2024 Active Losartan Potassium 100 MG TAKE 1 TABLET EVERY DAY; Duration: 90 Active Alive Womens 50+ Complete MV - as directed Orally Active Anti-Diarrheal 2 MG 1 capsule as needed Orally daily Active Dicyclomine HCl 10 MG 1 cap Orally twice a day; Duration: 30 days As needed with meals 11/12/2024 Active ACCU CHECK GLUCOMETER USE DIRECTED FO R FOUR TIMES A DAY TESTING; Duration: 90 DAYS 12/22/2023 Active Droplet Pen Sunspot 31G X 5 MM USE DIRECTED WITH INSULIN FIVE TIMES DAILY; Duration: 90 Active ACCU CHECK TEST STRIPS DIRECTED FOR TEST ING FOUR TIMES A DAY; Duration: 87 days Active Aspirin 81 MG 1 tab(s) chewed once a day; Duration: 30 day(s) Active ACCU CHECK SOFT CLICK LANCETS USE DIRECTED FOR TESTING FOUR TIMES A DAY; Duration: 30 DAYS 12/22/2023 Active DropSafe Alcohol Prep 70 % USE DIRECT ED WITH INJECTIONS FIVE TIMES PER DAY; Duration: 90 Active Baclofen 10 MG 1 tab(s) orally once a day; Duration: 90 days prn Active Macrobid 100 MG 1 capsule with food Orally every 12 hrs; Duration: 5 day(s) 02/20/2025 Active Immunizations Vaccine Route Administration Date Status Comme nts SHINGRIX IM Intramuscular 04/02/2024 Administered Prevnar PCV-20 (Pneumococcal conjugate 20) IM Intramuscular 04/04/2022 Administered Pneumovax 23 Unknown 01/02/2017 Administered Fluzone High Dose IM Intramuscular 03/11/2019 Administered Fluzone High Dose IM Intramuscular 03/02/2020 Administered Fluzone High Dose IM Intramuscular 04/04/2022 Administered Fluzone High Dose IM Intramuscular 04/27/2023 Administered Fluzone High Dose IM Intramuscular 03/12/2024 Administered Covid Pfizer Unknown 07/18/2020 Administered Covid Pfizer Unknown 08/08/2020 Administered Arexvy IM Intramuscular 08/03/2023 Administered Adacel (Tdap) Unknown 01/02/2017 Administered Social History Tobacco Use: Social History Observation Description Date Details (start date - stop date) Former Smoker NA - NA Smoking: Question Answer Notes Are you a: former smoker How long has it been since you last smoked? > 10 years Problems Problem Type SNOMED Code ICD Code Onset Dates Problem Status W/U Status Risk Notes Problem Diabetic peripheral neuropathy associated with type 2 diabetes mellitus (1560453643777) Type 2 diabetes mellitus with diabetic neuropathy, unspecified (E11.40) Active confirmed Problem Peripheral circulatory disorder associated with diabetes mellitus (543169923) Type 2 diabetes mellitus with other circulatory complications (E11.59) Active confirmed Problem Morbid obesity (disorder) (871918514) Morbid (severe) obesity due to excess calories (E66.01) Active confirmed Problem Irritable bowel syndrome with diarrhea (602046781) Irritable bowel syndrome with diarrhea (K58.0) Active confirmed Problem Arthritis (0947722) Arthritis (M19.90) Active c onfirmed Problem Neuropathy (386234268) Neuropathy (G62.9) Active confirmed Problem Essential hypertension (73258531) Essential hypertension (I10) Active confirmed Problem Gastroesophageal reflux disease (995551220) GERD without esophagitis (K21.9) Active confirmed Problem Body mass index 30.0 0 to 34.99 (648088854103252) BMI 34.0-34.9,adult (Z68.34) Active confirmed Problem Long-term current us e of insulin (705751100) [facility] (current) use of insulin (Z79.4) Active confirmed Problem Memory loss (15360421) Memory loss (R41.3) Active confirmed Problem Long-term current us e of insulin (376774246) [employer]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.4) Active confirmed Problem Generalized anxiety disorder (77938813) Anxiety, generalized (F41.1) Active confirmed Problem Hemiplegia of nondominant side as late effect of cerebrovascular disease (069322260) Hemiparesis affecting left side as late effect of cerebrovascular accident (I69.354) Active confirmed Problem Body mass index 35.0 0 to 39.99 (764682392594960) Body mass index (BMI) of 36.0-36.9 in adult (Z68.36) Active confirmed Problem Anxiety (48031359) Situational a nxiety (F41.8) Active confirmed Problem Hyperlipidaemia (04450941) Hyperlipidemia, unspecified hyperlipidemia type (E78.5) Active confirmed Problem Reactive depression (41962395) Reactive depression (F32.9) Active confirmed Problem Statin not tolerated (866661744) Statin intolerance (Z78.9) Active confirmed Problem Enthesopathy of knee (70506881) Pes anserine bursitis (M70.50) Active confirmed Problem Obesity (499272397) Obesity (BMI 35.0-39.9 without comorbidity) (E66.9) Active confirmed Problem Adult health examination (847995808) Healthcare maintenance (Z00.00) Active confirmed Problem Accelerated essentia l hypertension (58746012) Accelerated essential hypertension (I10) Active confirmed Problem Primary hypertension (46011457) Primary hypertension (I10) Active confirmed Problem Familial hypercholesterolemia (261438877) Familial hypercholesterolemia (E78.01) Active confirmed Problem Localized, primary osteoarthritis of the hand (701760324) Arthritis of hand (M19.049) Active confirmed Problem Acquired hammer toe of left foot (9412544235722921) Hammertoe of left foot (M20.42) Active confirmed Problem Disorder of musculoskeletal system (490644) Left arm weakness (R29.898) Active confirmed Problem Disorder of musculoskeletal system (404575) Left leg weakness (R29.898) Active confirmed Problem Seasonal allergic rhinitis (246889339) Seasonal allergic rhinitis, unspecified trigger (J30.2) Active confirmed Problem Functional constipation (628957144) Functional constipation (K59.04) Active confirmed Problem Adjustment disorder with depressed mood (96669960) Grief reaction (F43.21) Active confirmed Problem 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) Active confirmed Problem Dysarthria (9864657) 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) Active confirmed Problem Dysarthria as late effect of stroke (344406525840698) Dysarthria as late effect of stroke (I69.322) Active confirmed Vital Signs Heart Rate 80 /min 01/19/2025 Temperature 98.1 degrees Fahrenheit 01/19/2025 Blood pressure diastolic 80 mm Hg 01/19/2025 Height 63 in 01/19/2025 Blood pressure systolic 160 mm Hg 01/19/2025 Weight 177.2 lbs 01/19/2025 BMI 31.39 kg/m2 01/19/2025 Encounters Encounter Location Date Provider Diagnosis [facility] [address] [place] [address] 10/01/2024 Provider Migration Essential hypertension I10 and Hemiparesis affecting left side as late effect of cerebrovascular accident I69.354 [facility] [address] [place] [address] 03/12/2024 Juan Zavala Type 2 diabetes lexie itus with diabetic neuropathy, unspecified E11.40 ; Obesity (BMI 35.0-39.9 without comorbidity) E66.9 ; Familial hypercholesterolemia E78.01 ; Statin intolerance Z78.9 ; Routine medical exam Z00.00 and Immunization(s) administered Z23 [facility] [address] [place], [place] [address] 04/02/2024 Juan Zavala Type 2 diabetes lexie itus with diabetic neuropathy, unspecified E11.40 ; Essential hypertension I10 ; Obesity (BMI 35.0-39.9 without comorbidity) E66.9 ; Memory loss R41.3 and Encounter for immunization Z23 [facility] [address] [place], [place] [address] 07/02/2024 Juan Zavala Type 2 diabetes lexie itus with diabetic neuropathy, unspecified E11.40 ; Essential hypertension I10 ; [facility] current use of insulin Z79.4 ; Obesity (BMI 35.0-39.9 without comorbidity) E66.9 and Hemiparesis affecting left side as late effect of cerebrovascular accident I69.354 [facility] [address] [place] [address] 11/12/2024 Juan Zavala Type 2 diabetes lexie itus with diabetic neuropathy, unspecified E11.40 ; Essential hypertension I10 ; Irritable bowel syndrome with diarrhea K58.0 ; Situational anxiety F41.8 ; Anxiety, generalized F41.1 and Hammertoe of left foot M20.42 [facility] [address] [place] [address] 12/13/2024 Enedelia Aguilar Dysuria R30.0 ; Acut e cystitis with hematuria N30.01 and Irritable bowel syndrome with diarrhea K58.0 [facility] [address] [place] [address] 01/19/2025 Enedelia Aguilar Recurrent UTI N39.0 ; Essential hypertension I10 ; Type 2 diabetes mellitus with diabetic neuropathy, unspecified E11.40 and Hemiparesis affecting left side as late effect of cerebrovascular accident I69.354 [facility] [address] [place] [address] 06/30/2024 Juan Zavala Type 2 diabetes lexie itus with diabetic neuropathy, unspecified E11.40 and Familial hypercholesterolemia E78.01 [facility] [address] [place] [address] 07/05/2024 Juan Zavala Type 2 diabetes lexie itus with diabetic neuropathy, unspecified E11.40 [facility] [address] [place] [address] 07/05/2024 Juan Besson [facility] [address] [place] [address] 10/27/2024 Juandarleen Zavala Type 2 diabetes lexie itus with diabetic neuropathy, unspecified E11.40 [facility] [address] [facility] [address] [place] [address] 12/16/2024 Juan Besson [facility] [address] [facility] [address] [place] [address] 01/16/2025 Juan Besson [facility] [address] [facility] [address] [place] [address] 02/20/2025 Juan Besson [facility] [address] [facility] [address] [place] [address] 03/01/2025 Juan Zavala Type 2 diabetes lexie itus with diabetic neuropathy, unspecified E11.40 ; Familial hypercholesterolemia E78.01 and Neuropathy G62.9 Assessments Encounter Date Diagnosis (ICD Code) Assessment Notes Treatment Notes Treatment Clinical Notes Section Notes 03/12/2024 Type 2 diabetes mellitus with diabetic neuropathy, unspecified (ICD-10 - E11.40) Check labs. I will review labs personally. May be a good candidate for GLP agent given her history of side effects with SGLT2 and metformin. Januvia is not been really effective. Will follow labs personally 03/12/2024 Obesity (BMI 35.0-39 .9 without comorbidity) (ICD-10 - E66.9) 04/02/2024 Type 2 diabetes mellitus with diabetic neuropathy, unspecified (ICD-10 - E11.40) Increase dose to 7 mg. Follow-up in June for labs at that point. 04/02/2024 Essential hypertensi on (ICD-10 - I10) Good blood pressure control, no changes in plan 06/30/2024 Type 2 diabetes mellitus with diabetic neuropathy, unspecified (ICD-10 - E11.40) 06/30/2024 Familial hypercholesterolemia (ICD-10 - E78.01) 07/02/2024 Type 2 diabetes mellitus with diabetic neuropathy, unspecified (ICD-10 - E11.40) Overall doing very nicely. She wonders about increasing Rybelsus, we will check A1c first. If we can go up to 14 mg this might obviate the need for insulin whatsoever. Weight loss is a beneficial side effect so far, this will continue. 07/02/2024 Essential hypertensi on (ICD-10 - I10) Blood pressure seems on the low side especially with her age and risk of falls. Will change medication to plain losartan instead of losartan/HCTZ. 07/05/2024 Type 2 diabetes mellitus with diabetic neuropathy, unspecified (ICD-10 - E11.40) 10/01/2024 Essential hypertensi on (ICD-10 - I10) 10/27/2024 Type 2 diabetes mellitus with diabetic neuropathy, unspecified (ICD-10 - E11.40) 11/12/2024 Type 2 diabetes mellitus with diabetic neuropathy, unspecified (ICD-10 - E11.40) Patient's A1c is less than 7. Tolerating oral GLP well. Will stop Lantus. Recheck in 6 or 8 weeks. If fasting sugars are greater than 160 will consider some Helge doing a smaller dose. Patient was unable to give a urine sample for microalbumin. I gave a cup to her daughter to try to get a sample at home to bring it 11/12/2024 Essential hypertensi on (ICD-10 - I10) Good blood pressure control. On appropriate medication for secondary stroke prevention 12/13/2024 Acute cystitis with hematuria (ICD-10 - N30.01) Start antibiotic for presumed UTI based on symptoms/UA results as stated above. Will follow urine culture for growth and anti-microbial sensitivities. Encouraged patient to drink plenty of fluids & stay well hydrated. Discussed return precautions to clinic/ED including fever, vomiting, new worsening abdominal or back pain, or if symptoms do not improve in 1-2 days. Patient voices understanding and is agreeable to the plan of care above. 12/13/2024 Dysuria (ICD-10 - R30.0) 01/19/2025 Recurrent UTI (ICD-1 0 - N39.0) Normal UA. Symptoms resolved with Augmentin. No culture indicated. Follow-up PRN. 01/19/2025 Essential hypertensi on (ICD-10 - I10) Attribute elevation to not taking Losartan today and did go down after sitting. One isolated elevated read. Follow-up at next medication check in 3 months or sooner if needed. 03/01/2025 Type 2 diabetes mellitus with diabetic neuropathy, unspecified (ICD-10 - E11.40) 03/01/2025 Familial hypercholesterolemia (ICD-10 - E78.01) 03/01/2025 Neuropathy (ICD-10 - G62.9) 01/19/2025 Type 2 diabetes mellitus with diabetic neuropathy, unspecified (ICD-10 - E11.40) HA1C improved on current regimen per October 2024 labs. Tolerating medication well without n/v. Will re-check HA1C at next medication check in 3 months or sooner if needed. 11/12/2024 Irritable bowel syndrome with diarrhea (ICD-10 - K58.0) Has a lot of food related diarrhea especially when she is out or in otherwise socially anxious situations. Trial of dicyclomine with heavy meals when she is out. 12/13/2024 Irritable bowel syndrome with diarrhea (ICD-10 - K58.0) Discussed taking Metamucil 1 teaspoon bid and up titrating by 1 teaspoon each week till she is taking 3 teaspoons bid to help bulk stools. Drink half bodyweight in fl oz water. Reviewed s/s warranting urgent evaluation. I personally will review all labs once final. 04/02/2024 Obesity (BMI 35.0-39 .9 without comorbidity) (ICD-10 - E66.9) Good improvement in weight. No changes in this, continue Rybelsus and increase dose 07/02/2024 [facility] current us e of insulin (ICD-10 - Z79.4) Check labs as noted. Please note I have ordered these and I will review these personally 03/12/2024 Familial hypercholesterolemia (ICD-10 - E78.01) Check LDL. No changes in plan 04/02/2024 Memory loss (ICD-10 - R41.3) At the end of the visit patient asked me about taking memantine for memory as her sister has been taking this. We discussed appropriate use of the medication and I discussed doing MoCA testing and memory labs with her. She would like to wait on this until after cataract surgery and we will discuss this in June. She will let me know sooner if she wishes to be reevaluated 03/12/2024 Statin intolerance (ICD-10 - Z78.9) 07/02/2024 Obesity (BMI 35.0-39 .9 without comorbidity) (ICD-10 - E66.9) Improving obesity. 11/12/2024 Situational anxiety (ICD-10 - F41.8) Diazepam as noted below. Trial of venlafaxine. Failed SSRI therapy last year 01/19/2025 Hemiparesis affectin g left side as late effect of cerebrovascular accident (ICD-10 - I69.354) Continue ASA. 11/12/2024 Anxiety, generalized (ICD-10 - F41.1) Daughter is very concerned about her increasing social anxiety, she has a couple of high school graduations coming up and has done very poorly in the situations. She states that several decades ago she had a prescription for something that helped that she only took immediately before events. Will trial very low-dose diazepam but also start venlafaxine as noted below. 10/01/2024 Hemiparesis affectin g left side as late effect of cerebrovascular accident (ICD-10 - I69.354) 07/02/2024 Hemiparesis affectin g left side as late effect of cerebrovascular accident (ICD-10 - I69.354) Patient's prescription was erroneously transcribed by pharmacy as 1/2 tablet, this should be 1 full tablet of baclofen as needed for her post stroke cramping 03/12/2024 Routine medical exam (ICD-10 - Z00.00) Up-to-date with colonoscopy screening. Needs mammogram and DEXA scan. This will be scheduled. Up-to-date with vaccines. Declines Shingrix. Does not have a living will but daughter is healthcare surrogate. Fall risk is high but no falls recently. Good fall prevention plan in place. HRA reviewed 04/02/2024 Encounter for immunization (ICD-10 - Z23) 03/12/2024 Immunization(s) administered (ICD-10 - Z23) 11/12/2024 Hammertoe of left fo ot (ICD-10 - M20.42) Podiatry referral Plan Of Treatment Pending Test Test Name Order Date DEXA Hip and Spine - Screening MRI : Head, Without Contrast 04/25/2022 Mammogram : Bilateral 03/12/2024 Occupational Therapy : Eval & Treatment 08/07/2023 M-Complete Blood Count Auto Diff 025 M-Urine Microscopic 03/01/2025 M-Comprehensive Metabolic Panel 03/01/20 M-Comprehensive Metabolic Panel 05/11/20 M-Basic Metabolic Panel 04/06/2023 M-Hemoglobin A1C 10/21/2019 M-Hemoglobin A1C 05/11/2020 M-Hemoglobin A1C 03/01/2025 M-Hemoglobin A1C 04/06/2023 M-Magnesium 03/01/2025 M-Lipid Panel 04/08/2023 M-Lipid Panel 03/01/2025 M-Thyroid Panel 03/01/2025 M-Vitamin B12 03/01/2025 M-Vitamin D 25 Hydroxy 03/01/2025 M-DEBORAH Comprehensive Panel 10/01/2023 M-Microalb/Creat Ratio, Randm Ur 021 M-Microalb/Creat Ratio, Rand Ur 025 M-C. Diff Toxin Assay 06/21/2019 Physical Therapy : Gait training and cor e strengthening 01/21/2023 Physical Therapy Eval and Treat 08/03/19 24 Physical Therapy Eval and Treat 08/07/19 24 Physical Therapy Eval and Treat 10/23/19 23 Physical Therapy: Dry Needling Therapy 0 08/03/2023 Future Test Test Name Order Date M-Complete Blood Count Auto Diff 023 M-Comprehensive Metabolic Panel 08/18/19 23 M-Hemoglobin A1C 08/18/2022 M-Magnesium 08/18/2022 M-Thyroid Stimulating Hormone 08/18/2022 M-Vitamin B12 08/18/2022 M-Vitamin D 25 Hydroxy 08/18/2022 LIPID PANEL, STANDARD (7600) 01/05/2023 COMPREHENSIVE METABOLIC PANEL (57334) MAGNESIUM (622) 01/05/2023 CBC (INCLUDES DIFF/PLT) (6399) HEMOGLOBIN A1c (496) 01/05/2023 VITAMIN B12 (927) 01/05/2023 TSH (899) 01/05/2023 VITAMIN D,25-OH,TOTAL,IA (92138) 023 Next Appt Details Provider Name:Enedelia Kirk ce, 03/04/2025 09:30:00 AM, [address], [address], [place], [address], Insurance Providers Payer Name Payer Address Payer Phone Subscriber Number Group Number Insured Name Patient Relationship to Insured Coverage Start Date Coverage End Date [employer] MED[employer]ARE DUAL [address] [address] [place] [address] [id number] Theron Sharon Self - patient is the insured Medical (General) History Medical History History ICD Code Diabetes Arthritis HTN Obesity Colonoscopy 10/2020, Dr Randall, 1 TA and 1 hyperplastic polyp HLD - intolerant to statins CVA April 2022 with resid ual left-sided hemiparesis requiring admission to [place] stroke Surgical History Surgery Date(Month/Year) Bilateral trigger thumb release Right knee surgery 1958 Cholecystectomy Appendectomy Tubal ligation Gastric sleeve 05/17/2018 Hospitalization History Reason Date(Month/Year) Stroke, COVID 19. [facility] 03/2022 Gastric Sleeve 05/17/2018 Appendectomy Tubal ligation
[2025-03-04 09:18] LABS: Microscopic, Urine URINE MICROSCOPIC (MICROSCOPIC)
[2025-03-04 09:51] LABS: Hematocrit 41.7 % (37.0-47.0); Hemoglobin 13.9 g/dL (12.2-16.2); Immature Granulocytes % 0.2 %; Mean Corpuscular HGB Conc 33.3 g/dL (31.8-35.4); Mean Corpuscular Hemoglobin 29.6 pg (27.0-31.2); Mean Corpuscular Volume 88.9 fl (81-99); Nucleated Red Blood Cells % 0 %; Platelet Count 198 K/mm3 (142-424); Red Blood Count 4.69 M/mm3 (4.20-5.40); Red Cell Distribution Width-SD 42.0 fL; White Blood Count 9.7 K/mm3 (4.8-10.8)
[2025-03-04 09:56] LABS: Bilirubin,Urine Negative (Negative); Color,Urine YELLOW (Yellow); Glucose,Urine (UA) Negative (Negative); Ketones,Urine Negative (Negative); Leukocyte Esterase,Urine TRACE (Negative); PH,Urine 6.0 (5.0-8.5); Protein,Urine Negative (Negative); Specific Gravity, Urine 1.020 (1.005-1.030); Urobilinogen,Urine 0.2 EU/dl (0.2)
[2025-03-04 10:00] LABS: Alanine Aminotransferase 25 U/L (12-78); Albumin Level 4.4 g/dl (3.5-5.0); Albumin/Globulin Ratio 1.6 (1.1-1.8); Alkaline Phosphatase 100 U/L (38-126); Anion Gap 12.6 mEq/L (5-15); Aspartate Amino Transferase 34 U/L (14-36); Bilirubin,Total 0.9 mg/dl (0.2-1.3); Blood Urea Nitrogen 10 mg/dl (7-17); Calcium 9.2 mg/dl (8.4-10.2); Carbon Dioxide 24 mmol/L (22.0-30.0); Chloride 107 mmol/L (98-107); Cholesterol 220 mg/dl (140-200); Creatinine,Serum 0.60 mg/dl (0.52-1.04); Estimated Glomerular Filt Rate 99 ml/min (>60); GFR (African American) 119 ML/MIN (>60); Globulin 2.8 g/dL (1.3-3.2); Glucose 160 mg/dl (74-100); HDL Cholesterol 47 mg/dl (40-60); Magnesium 1.7 mg/dl (1.6-2.3); Potassium 3.6 mmoL/L (3.5-5.1); Sodium 140 mmol/L (136-145); Total Protein,Serum 7.2 g/dl (6.3-8.2); Triglycerides 188 mg/dl (30-150)
[2025-03-04 10:14] LABS: Bacteria,Urine 1+ /lpf; Hyaline Casts,Urine OCC #/lpf (0)
[2025-03-04 11:28] LABS: 25-OH Vitamin D, Total 28.8 ng/mL (30-100)
[2025-03-04 11:29] LABS: Free Thyroxine Index 3.1 ug/dL (5.93-13.13); T4 (Thyroxine) 9.9 ug/dl (5.53-11.0); Triiodothryronine (T3) Uptake 31 % (23.5-40.5)
[2025-03-04 11:31] LABS: Hemoglobin A1C 6.4 % (4.0-6.0)
[2025-03-04 11:41] LABS: Vitamin B12 467 pg/mL (239-931)
[2025-03-04 11:43] LABS: Thyroid Stimulating Hormone 2.16 uIU/mL (0.465-4.68)
== END 2025-03-04 23:59 | disposition home or self-care (01) ==
PROVIDERS: PCP Internal Medicine Adolescent Medicine; Visit Provider Internal Medicine Adolescent Medicine
DX: E11.40 Type 2 diabetes mellitus with diabetic neuropathy, unspecified (principal); E78.01 Familial hypercholesterolemia
CPT/HCPCS: 36415; 80053; 80061; 81001; 82043; 82306; 82570; 82607; 83036; 83735; 84436; 84443; 84479; 85025

== ENCOUNTER 2025-03-04 18:48 | Outpatient (CLI) | payer MEDICARE, SELFPAY ==
--- OUTSIDE RECORDS SUMMARY | 2025-03-04 05:30 | XMS_ITS ---
Author Organization [facility] D DIL[facility] Address [address] [place] [address] Care Team Providers Care Glass Technologist Name Role Phone Juan Zavala Primary Care Provider Juan Zavala Unavailable Unavailable Enedelia Hart Unavailable [phone] Allergies Allergen (clinical drug ingredient) Drug/Non Drug Allergy documented on EMR Reaction Allergy Type Onset Date Status SULFA (uncoded) Unknown Allergy 08/02/2019 Act xavier REASON FOR VISIT Med Check and F/U-has had labs this morning, having bladder discomfort, has had severe diarrhea offand on, can hear her heartbeat in her ears, flu shot? Medications Medication SIG (Take, Route, Frequency, Duration) Notes Start Date End Date Status Losartan Potassium 100 MG TAKE 1 TABLET EVERY DAY; Duration: 90 Active Droplet [place] 31G X 5 MM USE DIRECTED WITH INSULIN FIVE TIMES DAILY; Duration: 90 Active DropSafe Alcohol Prep 70 % USE DIRECT ED WITH INJECTIONS FIVE TIMES PER DAY; Duration: 90 Active ACCU CHECK TEST STRIPS DIRECTED FOR TEST ING FOUR TIMES A DAY; Duration: 87 days Active Rybelsus 14 MG 1 tab(s) orally once a day; Duration: 30 days 07/05/2024 Active Pen [place] NA use 5 times daily; Duration: 100 days Active Baclofen 10 MG 1 tab(s) orally once a day; Duration: 90 days prn Active Dicyclomine HCl 20 MG 1 tablet Orally 4 times a day, before meals and at bedtime; Duration: 30 days 03/04/2025 Active Aspirin 81 MG 1 tab(s) chewed once a day; Duration: 30 day(s) Active ACCU CHECK GLUCOMETER USE DIRECTED FO R FOUR TIMES A DAY TESTING; Duration: 90 DAYS 12/22/2023 Active ACCU CHECK SOFT CLICK LANCETS USE DIRECTED FOR TESTING FOUR TIMES A DAY; Duration: 30 DAYS 12/22/2023 Active Alive Womens 50+ Complete MV - as directed Orally Active Pantoprazole Sodium 20 MG 1 tablet 1/2 t o 1 hour before morning meal Orally Once a day Active Immunizations Vaccine Route Administration Date Status Comme nts Fluzone High Dose IM Intramuscular 03/04/2025 Administered Social History Tobacco Use: Social History Observation Description Date Details (start date - stop date) Former Smoker NA - NA Smoking: Question Answer Notes Are you a: former smoker How long has it been since you last smoked? > 10 years Vital Signs Temperature 97.6 degrees Fahrenheit 03/04/20 25 Heart Rate 78 /min 03/04/2025 Blood pressure systolic 142 mm Hg 03/04/20 25 Blood pressure diastolic 78 mm Hg 025 Height 63 in 03/04/2025 Weight 172.8 lbs 03/04/2025 BMI 30.61 kg/m2 03/04/2025 Encounters Encounter Location Date Provider Diagnosis [facility] P[facility] [address] [facility] [address] [place], [place] [address] 03/04/2025 Enedelia Hart Diarrhea of presumed infectious origin R19.7 ; Type 2 diabetes mellitus with diabetic neuropathy, unspecified E11.40 ; Postprandial diarrhea K52.9 ; Immunization(s) administered Z23 ; Essential hypertension I10 ; Pulsatile tinnitus H93.A9 and Dysuria R30.0 Assessments Encounter Date Diagnosis (ICD Code) Assessment Notes Treatment Notes Treatment Clinical Notes Section Notes 03/04/2025 Diarrhea of presumed infectious origin (ICD-10 - R19.7) has had several rounds of antibiotics for UTI, check panel as noted. she also noted h/o h. pylori and asking about blood test but discussed that this will always be positive. symptoms do not sound c/w h. pylori 03/04/2025 Type 2 diabetes mellitus with diabetic neuropathy, unspecified (ICD-10 - E11.40) Patient's A1c is less than 7. Tolerating oral GLP well but we discussed it could contributing to her diarrhea 03/04/2025 Postprandial diarrhea (ICD-10 - K52.9) Recommend trial of FiberCon tablets, 2 every morning in addition to dicyclomine AC and at bedtime. If these interventions do not help to improve diarrhea would recommend trial of colestipol as she reports that most of her diarrhea is postprandial and bright green to yellow 03/04/2025 Immunization(s) administered (ICD-10 - Z23) 03/04/2025 Essential hypertension (ICD-10 - I10) Good blood pressure control. On appropriate medication for secondary stroke prevention 03/04/2025 Pulsatile tinnitus (ICD-10 - H93.A9) she reports ringing tinnitus previously but more recently has become pulsatile at times. Recommend resume daily antihistamine and if this does not improve she will let us know. 03/04/2025 Dysuria (ICD-10 - R30.0) UA is not significantly abnormal, recommend wait for culture if indicated before starting any additional antibiotics Plan Of Treatment Medication Medication Name Sig Start Date Stop Date Notes Anti-Diarrheal 2 MG 1 capsule as needed Orally daily Dicyclomine HCl 10 MG 1 cap Orally twice a day 11/12/2024 Dicyclomine HCl 20 MG 1 tablet Orally 4 times a day, before meals and at bedtime; Duration: 30 days 03/04/2025 Treatment Notes Assessment Notes Type 2 diabetes mellitus wit h diabetic neuropathy, unspecified Patient's A1c is less than 7. Tolerating oral GLP well but we discussed it could contributing to her diarrhea Essential hypertension Good blood pressu re control. On appropriate medication for secondary stroke prevention Pending Test Test Name Order Date M-Diarrhea Panel, PCR 03/04/2025 Next Appt Details Follow Up: pending results, Reason: Progress Notes * Sharon DE LOS SANTOSDOB:1955 (69 yo F)Acc No.[id number]:03/04/2025 Progress Notes Patient: Sharon CAT Provider: JEN Dunham :1955 A ge:69 Y S ex:Female Date:03/04/2025 Address[facility] [address], [id number] Pcp:Juan Zavala Subjective: * Chief Complaints: * 1 . Med Check and F/U-has had labs this morning. 2. Having bladder discomfort. 3. Has had severe diarrhea off and on. 4. Can hear her heartbeat in her ears. 5. Flu shot?. * HPI: Kodi blanchard: Presents today for chronic disease FU but also with concern about possible return of UTI - no hematuria but some mild dysuria and lower abdominal pressure which she contributes to her bladder also with multiple episodes of postprandial diarrhea, every day, for months. no improvement with PRN dicyclomine. Hasn't tolerated fiber. FSBS w ell controlled, has stopped all insulin. o ral medications w ell tolerated unless contributing to diarrhea. d iet T jameel to follow diet most of the time. f oot lesions d enies. o phthalmology eval W ithin the past year. Last HbA1C p ending today. A CE inhibitor? A RB. A spirin therapy y es.?Statin therapy n o, multiple intolerances in the past. C omplications s troke. G astroenterology: c/o abdominal pain. c/o diarrhea. Denies : reflux to mouth. D enies : heartburn. D enies : nausea. D enies : vomiting. D enies : constipation. D enies : fever. D enies : blood in stool. D enies : perianal discomfort. * ROS: R ESPIRATORY: no S hortness of breath. n o C ough. ? C ARDIOLOGY: no C hest pain. n o S hortness of breath. ? C ONSTITUTIONAL: no L oss of appetite. n o F ever. n o W eakness. D ERMATOLOGY: no R jocelyn. E NT: Positive for b ilat thumping tinnitis. G ASTROENTEROLOGY: See HPI Y es. N EUROLOGY: Tingling numbness y es. n o S eizures. n o I nsomnia. n o M boston loss. U ROLOGY: See HPI Y es. 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 * Surgical History: B ilateral trigger thumb release , Right knee surgery 195, Cholecystectomy , Appendectomy , Tubal ligation , [...] brother - cancer, sister- CVAyoungest sister-TIA. C bushra: alive, son- diabetes. 1 brother(s) , 2 [...] Alcohol: no. Sexually active: yes. Travel outside [place]: no. 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 * Medications: T aking Pantoprazole Sodium 20 MG Tablet Delayed Release 1 tablet 1/2 to 1 hour before morning meal Orally Once a day , Taking Anti-Diarrheal 2 MG Capsule 1 capsule as needed Orally daily , Taking Alive Womens 50+ Complete MV - Tablet as directed Orally , Taking Aspirin 81 MG Tablet Chewable 1 tab(s) chewed once a day , Taking ACCU CHECK GLUCOMETER USE DIRECTED FOR FOUR TIMES A DAY TESTING , Taking ACCU CHECK SOFT CLICK LANCETS USE DIRECTED FOR TESTING FOUR TIMES A DAY , Taking Baclofen 10 MG Tablet 1 tab(s) orally once a day , Notes to Pharmacist: prn, Taking Rybelsus 14 MG Tablet 1 tab(s) orally once a day , Taking Pen [place] NA NA use 5 times daily , Taking Losartan Potassium 100 MG Tablet TAKE 1 TABLET EVERY DAY , Taking Dicyclomine HCl 10 MG Capsule 1 cap Orally twice a day As needed with meals, Taking Droplet [place] 31G X 5 MM Miscellaneous USE DIRECTED WITH INSULIN FIVE TIMES DAILY , Taking DropSafe Alcohol Prep 70 % Pad USE DIRECTED WITH INJECTIONS FIVE TIMES PER DAY , Taking ACCU CHECK TEST STRIPS DIRECTED FOR TESTING FOUR TIMES A DAY , Discontinued Macrobid 100 MG Capsule 1 capsule with food Orally every 12 hrs , Medication List reviewed and reconciled with the patient * Allergies: S ULFA - Onset Date 08/02/2019. Objective: * Vitals: N urse: jl, Pain: 0, Temp: 97.6, RR: 18, HR: 78, BP: 142/78, Ht: 63, Wt: 172.8, BMI:30.61. * Examination: G eneral Examination: General P leasant and Cooperative, NAD on RA,. Oral cavity: M oist membranes. Heart: R egular Rate and Rhythm, no murmur, rubs or gallops. HEENT: m ild nasal congestion, small effusion left tm. Lungs: c lear to auscultation,. Abdomen: s oft, NT/ND, BS present. Neurologic Exam: A lert and oriented x 3. Skin: w ithout acute rashes. Peripheral pulses: n ormal (2+) bilaterally. Extremities: n o clubbing, no edema,. neck s upple,, no lymphadenopathy,. Psych N ormal Mood/Affect. Assessment: * Assessment: 1. T ype 2 diabetes mellitus with diabetic neuropathy, unspecified - E11.40 (Primary) ? 2 . D iarrhea of presumed infectious origin - R19.7 3 . P ostprandial diarrhea - K52.9 4 . I mmunization(s) administered - Z23 5 . Essential hypertension - I10 6 . P ulsatile tinnitus - H93.A9 ?7. D ysuria - R30.0 Plan: * Treatment: 2. D iarrhea of presumed infectious origin L AB: M-Diarrhea Panel, PCR Clinical Notes: has had several rounds of antibiotics for UTI, check panel as noted. she also noted h/o h. pylori and asking about blood test but discussed that this will always be positive. symptoms do not sound c/w h. pylori 3. P ostprandial diarrhea Start Dicyclomine HCl Tablet, 20 MG, 1 tablet, Orally, 4 times a day, before meals and at bedtime, 30 days, 120, Refills 1; S top Anti-Diarrheal Capsule, 2 MG, 1 capsule as needed, Orally, daily; Stop Dicyclomine HCl Capsule, 10 MG, 1 cap, Orally, twice a day As needed with meals. ? Clinical Notes: Recommend trial of FiberCon tablets, 2 every morning in addition to dicyclomine AC and at bedtime. If these interventions do not help to improve diarrhea would recommend trial of colestipol as she reports that most of her diarrhea is postprandial and bright green to yellow ? 4. E ssential hypertension Notes: Good blood pressure control. On appropriate medication for secondary stroke prevention ? 5. P ulsatile tinnitus Clinical Notes: she reports ringing tinnitus previously but more recently has become pulsatile at times. Recommend resume daily antihistamine and if this does not improve she will let us know. ? 6. D ysuria Clinical Notes: UA is not significantly abnormal, recommend wait for culture if indicated before starting any additional antibiotics * Immunizations: Fluzone High Dose : 0.5 mL (Dose No:1) (Route: Intramuscular) given by ALEJO Duran on Right Deltoid (Immunization(s) administered) * Procedure Codes: 9 0662 Influenza High Dose Vaccine >65 Years Old, G0008 ADMINISTRATION-FLU VACCINE MEDICARE ONLY * Follow Up: p ending results * * Sign off status: Completed true * Provider: JEN Dunham Date: 0 03/04/2025 Generated for Jose frye/Olegario/Lorna on: 0 03/04/2025 06:52 PM EDT History and Physical Notes * HPI (History of Present Illness) Category Sub-Category Detail Notes Category Not es Gastroenterology fever vomiting abdominal pain diarrhea blood in stool nausea constipation heartburn perianal discomfort reflux to mouth Diabetes FSBS well controlled, has stopped all insulin oral medications well tolerated unles s contributing to diarrhea diet Tries to follow diet most of the time foot lesions denies ophthalmology eval Within the past year Last HbA1C pending today GLORIA inhibitor? ARB Aspirin therapy yes Statin therapy no, multiple intoler ances in the past Complications stroke Examination Category Sub-Category Detail Notes Category Not es General Examination HEENT: mild nasal c ongestion, small effusion left tm Heart: Regular Rate and Rhy thm, no murmur, rubs or gallops Lungs: clear to auscultatio n, Abdomen: soft, NT/ND, BS pres ent Extremities: no clubbing, no albina a, Skin: without acute rashes Neurologic Exam: Alert and oriented x 3 Oral cavity: Moist membranes Peripheral pulses: normal (2+) bilatera lly neck supple,, no lymphade nopathy, General Pleasant and Coopera tive, NAD on RA, Psych Normal Mood/Affect
--- OUTSIDE RECORDS SUMMARY | 2025-03-04 18:52 | XMS_ITS | Clinical Summary ---
Author Organization [employer] ([place], [place], [place], [place]) Address [address] [place] [address] Care Team Providers Care Livestock Yard Attendant Name Role Phone Juan Zavala MD Primary Care Provider + [phone] Allergies Active Allergy Reactions Criticality Noted Date [...] Use once daily with Victoza Active multivitamin-C m-ymmi-vaielww s 27-0.4 mg Tab one a day [...] Date Imtiaz rded Speak language other than Belgian at home Not on file 07/17/2023 Want [...] Advance Directives For more information, please contact: [phone] * Full Code (Latest Code Status on File) Date Activated Date Inactivated Comments 04/26/2022 5:37 PM 05/01/2022 10:25 PM Care Teams Livestock Yard Attendant Relationship Specialty Start Date End Date Juan Zavala MD [address] [place] [address] PCP - General Adolescent Medicine 04/26/22
--- OUTSIDE RECORDS SUMMARY | 2025-03-04 18:52 | XMS_ITS | Referral Summary ---
Author Organization [employer] ([place], [place], [place], [place]) Address [address] [place] [address] Care Team Providers Care Title Curative Specialist Name Role Phone Juan aZvala MD Primary Care Provider + [phone] Allergies Active Allergy Reactions Criticality Noted Date [...] Use once daily with Victoza Active multivitamin-C g-sdwh-lwzpwis s 27-0.4 mg Tab one a day [...] Date Imtiaz rded Speak language other than [place] at home Not on file 07/17/2023 Want [...] Advance Directives For more information, please contact: [phone] * Full Code (Latest Code Status on File) Date Activated Date Inactivated Comments 04/26/2022 5:37 PM 05/01/2022 10:25 PM Care Teams Title Curative Specialist Relationship Specialty Start Date End Date Juan Zavala MD [address] [place] [address] PCP - General Adolescent Medicine 04/26/22
--- OUTSIDE RECORDS SUMMARY | 2025-03-04 18:52 | XMS_ITS | Encounter Summary ---
Author Organization [employer] ([place], [place], [place], [place]) Address [address] [place] [address] Care Team Providers Care Content Engineer Name Role Phone Juan Zavala MD Primary Care Provider + [phone] Reason for Visit * Reason Comments Medication Refill Encounter Details Date Type Department Care Team (Late st Contact Info) Description 05/01/2023 Refill [facility] Neurology - [address] [facility] [address] [address] aCrlitos Amaya MD [address] [place] [id number] Social History Tobacco Use Types Packs/Day [...] on filedocumented in this encounter Care Teams Content Engineer Relationship Specialty Start Date End Date Juan Zavala MD [address] [place] [address] PCP - General Adolescent Medicine 04/26/22 documented as of this encounter
[2025-03-04 19:07] LABS: Adenovirus F 40/41, stool Not Detected (NotDetected); Clostridium Difficile A/B, PCR Not Detected (NotDetected); Cyclospora Cayetanesis Not Detected (NotDetected); Plesimonas Shigalloides, PCR Not Detected (NotDetected); Salmonella, PCR Not Detected (NotDetected); Shiga-like toxin E coli Not Detected (NotDetected); Shigella Enterovasive E coli Not Detected (NotDetected); Vibrio, PCR Not Detected (NotDetected); Yersinia Entercolitica, PCR Not Detected (NotDetected)
== END 2025-03-04 23:59 | disposition home or self-care (01) ==
LOC: LAB.DROPOF 18:50
PROVIDERS: PCP Nurse Practitioner Family; Visit Provider Nurse Practitioner Family
DX: R19.7 Diarrhea, unspecified (principal)
CPT/HCPCS: 87507